=== PATIENT | female | born 1995 | race Caucasian/White ===

== ENCOUNTER 2016-06-22 18:55 | Emergency (ER) | payer OTHER ==
--- NOTE | 2016-06-22 20:26 | XR ---
EXAMINATION TYPE: XR knee complete RT DATE OF EXAM: 06/22/2016 8:17 PM COMPARISON: NONE HISTORY: Knee pain TECHNIQUE: 3 views FINDINGS: I see no fracture nor dislocation. Joint spaces are normal. There is no sign of any joint e ffusion. IMPRESSION: Negative right knee exam.
[2016-06-22] MEDS ORDERED: CYCLOBENZAPRINE 10 MG TAB PO STA (20:33)
[2016-06-22] MEDS ORDERED: ACET/COD 300 MG/30 MG STARTER PACK 6 TAB BTL PO STA (20:33)
--- NOTE | 2016-06-22 20:38 | ED ---
Lower Extremity Injury HPI - General Chief Complaint: Extremity Injury, Lower Stated Complaint: Fell/knee injury Time Seen by Provider: 06/22/16 19:47 Source: patient, RN notes reviewed Mode of arrival: wheelchair Limitations: no limitations - History of Present Illness Initial Comments: Patient is a 20-year-old female presenting to the with chief complaint of right knee pain. Patient reports that she twisted it earlier today. Patient reports that since that she was able to walk on it however she's noticed increased pain in the afternoon. She reports that she feels a grinding sensation in her knee. She denies any previous knee injuries. She does not seem orthopedic physician. She denies any peripheral paresthesias, ankle pain or foot pain. She denies any hip pain as well. Patient denies any recent fever , chills, shortness of breath, chest pain, back pain, abdominal pain, nausea vomiting, numbness or tingling, dysuria or hematuria, constipation or diarrhea, headaches or visual changes, or any other current symptoms - Related Data Previous Rx's Medication Instructions Recorded Cyclobenzaprine [Flexeril] 10 mg PO TID #10 tab 06/22/16 traMADol HCl [Ultram] 50 mg PO Q4H PRN #12 tab 06/22/16 Allergies Allergy/AdvReac Type Severity Reaction Status Date / Time amoxicillin [Amoxicillin] Allergy Unknown Verified 04/16/16 14:05 Review of Systems ROS Statement: Those systems with pertinent positive or pertinent negative responses have been documented in the HPI. ROS Other: All systems not noted in ROS Statement are negative. Past Medical History Additional Past Medical History / Comment(s): ADHD, CEREBRAL PALSY, ARTHRITIS. History of Any Multi-Drug Resistant Organisms: None Reported Past Surgical History: Section Past Psychological History: ADD/ADHD Smoking Status: Current every day smoker Past Alcohol Use History: None Reported Past Drug Use History: None Reported General Exam - General Exam Comments Initial Comments: Luis E is a morbidly obese 20-year-old female. She is on appear to be in any acute distress at this time. Limitations: no limitations General appearance: alert, in no apparent distress Head exam: Present: atraumatic, normocephalic, normal inspection Eye exam: Present: normal appearance, PERRL, EOMI. Absent: scleral icterus, conjunctival injection, periorbital swelling ENT exam: Present: normal exam, mucous membranes moist Neck exam: Present: normal inspection. Absent: tenderness, meningismus, lymphadenopathy Respiratory exam: Present: normal lung sounds bilaterally. Absent: respiratory distress, wheezes, rales, rhonchi, stridor Cardiovascular Exam: Present: regular rate, normal rhythm, normal heart sounds. Absent: systolic murmur, diastolic murmur, rubs, gallop, clicks GI/Abdominal exam: Present: soft, normal bowel sounds. Absent: distended, tenderness, guarding, rebound, rigid Right Upper Leg exam: Present: normal inspection, full ROM Knee exam: Present: normal inspection, full ROM, tenderness (MCL tenderness) Lower Leg exam: Present: normal inspection, full ROM Ankle exam: Present: normal inspection, full ROM Foot/Toe exam: Present: normal inspection, full ROM Neurovascular tendon exam: Present: no vascular compromise Gait: observed and normal Back exam: Present: normal inspection Neurological exam: Present: alert, oriented X3, CN II-XII intact Psychiatric exam: Present: normal affect, normal mood Skin exam: Present: warm, dry, intact, normal color. Absent: rash Course Vital Signs 06/22/16 06/22/16 19:30 20:53 Temperature 99.1 F 98.0 F Pulse Rate 88 76 Respiratory 18 16 Rate Blood Pressure 128/70 128/76 O2 Sat by Pulse 97 100 Oximetry Medical Decision Making - Medical Decision Making Patient is a 20-year-old female presenting to the with chief complaint of right knee pain. Patient reports that she feels a grinding sensation in her knee. She states they'll be symptoms of current per approximately 1 after falling on the ice. He was given a x-ray which is negative for any acute process. Patient will be given a starter pack of Tylenol 3 and Flexeril. Patient will be discharged at this time instructed to follow-up with orthopedic physician. He will she was given an Carlos Alberto wrap and a prescription for crutches. Patient understands treatment plan and will comply. Return parameters were discussed. - Radiology Data Radiology results: report reviewed Right knee x-ray shows negative for any acute process. No evidence of dislocation or fracture. Disposition Clinical Impression: Right knee sprain Disposition: HOME SELF-CARE Condition: Good Instructions: Knee Sprain (ED) Additional Instructions: Patient instructed to follow-up with orthopedic physician. Keep leg and Carlos Alberto wrap. Patient instructed to take medications as prescribed. Return to the [facility] if any alarming signs or symptoms occur. Prescriptions: Cyclobenzaprine [Flexeril] 10 mg PO TID #10 tab traMADol HCl [Ultram] 50 mg PO Q4H PRN #12 tab PRN Reason: Pain Referrals: Gerardo Toledo MD [STAFF PHYSICIAN] - 1-2 days Time of Disposition: 20:35
[2016-06-22 20:54] VITALS: BP 128/76; PULSE 76; RESP 16; TEMP 98
== END 2016-06-22 20:54 | disposition home or self-care (01) ==
LOC: EC 18:55
DX: S83.91XA Sprain of unspecified site of right knee, initial encounter (principal); W00.0XXA Fall on same level due to ice and snow, initial encounter; Z88.0 Allergy status to penicillin; G80.9 Cerebral palsy, unspecified
CPT/HCPCS: 99283

== ENCOUNTER 2016-06-26 10:13 | Emergency (ER) | payer OTHER ==
--- NOTE | 2016-06-26 11:06 | ED ---
Lower Extremity Injury HPI - General Stated Complaint: Leg Pain Time Seen by Provider: 06/26/16 10:44 Source: RN notes reviewed - History of Present Illness Initial Comments: Patient is 20-year-old female presents to the emergency room for evaluation of right knee pain. Patient states today around 9:30 this morning she was doing a dance move caught the " drop" and twisted her right knee. Patient states she was here on Tuesday with right knee injury. Patient states she was advised to follow-up with [facility] and was given pain medications. Patient states after this incident this morning she is having worsening pain on the medial side of her knee. Patient states the pain is worse than it was on Tuesday. Patient states she thinks she injured her knee more. Patient states she is here for another x-ray. Patient denies following up with [facility] yet. Patient denies any numbness or tingling in her toes. Denies any other injuries during incident. - Related Data Previous Rx's Medication Instructions Recorded Cyclobenzaprine [Flexeril] 10 mg PO TID #10 tab 06/22/16 traMADol HCl [Ultram] 50 mg PO Q4H PRN #12 tab 06/22/16 Allergies Allergy/AdvReac Type Severity Reaction Status Date / Time amoxicillin [Amoxicillin] Allergy Unknown Verified 04/16/16 14:05 Review of Systems ROS Statement: Those systems with pertinent positive or pertinent negative responses have been documented in the HPI. ROS Other: All systems not noted in ROS Statement are negative. Past Medical History Additional Past Medical History / Comment(s): ADHD, CEREBRAL PALSY, ARTHRITIS. History of Any Multi-Drug Resistant Organisms: None Reported Past Surgical History: Section Past Psychological History: ADD/ADHD Smoking Status: Current every day smoker Past Alcohol Use History: None Reported Past Drug Use History: None Reported General Exam - General Exam Comments Initial Comments: Laying in exam bed, no acute distress. General appearance: alert, in no apparent distress Head exam: Present: atraumatic, normocephalic, normal inspection Eye exam: Present: normal appearance ENT exam: Present: normal exam Neck exam: Present: normal inspection Respiratory exam: Absent: respiratory distress Right Upper Leg exam: Present: normal inspection, full ROM. Absent: tenderness Knee exam: Present: normal inspection, full ROM, tenderness (medial knee joint) , full knee extension. Absent: swelling, abrasion, ecchymosis, deformity, crepitus, dislocation Lower Leg exam: Present: normal inspection, full ROM. Absent: tenderness Neurovascular tendon exam: Present: no vascular compromise. Absent: pulse deficit (2+ dorsal pedal and posterior tibial pulses), abnormal cap refill ( Capillary refill less than 2 seconds) Back exam: Present: normal inspection Neurological exam: Present: alert, oriented X3, CN II-XII intact, normal gait Psychiatric exam: Present: normal affect, normal mood Skin exam: Present: warm, dry, intact, normal color. Absent: rash Course Vital Signs 06/26/16 11:14 Temperature 97.8 F Pulse Rate 72 Respiratory 20 Rate Blood Pressure 118/57 O2 Sat by Pulse 98 Oximetry Medical Decision Making - Medical Decision Making Patient is a 20-year-old female presents to the emergency room for evaluation of right knee injury. Right knee x-ray shows no acute findings. Advised patient to continue taking at home pain medications as needed. Advised patient to nonweightbear with crutches for the next 1-2 days. Patient states she has an Carlos Alberto wrap at home from previous visit. Advised patient to follow-up with [facility] if symptoms are not improving in 7-10 days. Patient states she understands everything that was discussed with her. Return parameters discussed. Case discussed with Dr. Michael. - Radiology Data Radiology results: report reviewed, image reviewed Disposition Clinical Impression: Fall, Right knee sprain Disposition: HOME SELF-CARE Condition: Good Instructions: Knee Sprain (ED) Additional Instructions: Rest, elevate and ice on and off for 10-15 minutes for the next 24-48 hours. Nonweightbearing for 1-2 days. Take Tylenol or Motrin as needed for pain. Please follow-up with [facility] in 7-10 days if symptoms are not improving. If new symptoms develop or symptoms worsen, please return to the ER. Referrals: None,Stated [Primary Care Provider] - 1-2 days Gerardo Toledo MD [STAFF PHYSICIAN] - 1-2 days Time of Disposition: 11:25
[2016-06-26 11:17] VITALS: BP 118/57; PULSE 72; RESP 20; TEMP 97.8
--- NOTE | 2016-06-26 11:21 | XR ---
EXAMINATION TYPE: XR knee complete RT DATE OF EXAM: 06/26/2016 11:14 AM COMPARISON: NONE HISTORY: Pain, fall TECHNIQUE: 3 views right knee FINDINGS: Joint spaces are preserved. No acute fractures are evident. No joint effusion is evident. S oft tissues are normal. IMPRESSION: 1. Normal three-view right knee. 2. Follow-up exams can be performed 7-10 days from acute trauma for continued pain.
== END 2016-06-26 12:14 | disposition home or self-care (01) ==
LOC: EC 10:13
DX: S83.91XA Sprain of unspecified site of right knee, initial encounter (principal); X50.1XXA Overexertion from prolonged static or awkward postures, initial encounter; Y93.41 Activity, dancing; Z88.0 Allergy status to penicillin; F17.200 Nicotine dependence, unspecified, uncomplicated
CPT/HCPCS: 99284

== ENCOUNTER 2017-09-20 16:15 | Emergency (ER) | payer OTHER ==
[2017-09-20 16:43] VITALS: BP 157/94; PULSE 82; RESP 16; TEMP 98
--- NOTE | 2017-09-20 16:49 | ED ---
General Adult HPI - General Chief complaint: Skin/Abscess/Foreign Body Stated complaint: rash Time Seen by Provider: 09/20/17 16:41 Source: patient, RN notes reviewed Mode of arrival: ambulatory Limitations: no limitations - History of Present Illness Initial comments: 21-year-old female presents to the emergency department for a chief complaint of rash times one week. Patient states the rash has mostly resolved. 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 She states the fiberglass caused the rash. Patient states she also breathes and fiberglass and it is causing her to cough for the past 2 days. Patient denies any difficulty breathing but says it sometimes makes her short of breath. Patient denies any shortness of breath in the ER. Patient states she talked to her primary care doctor, Dr. Hendrickson, and asked him to write her a letter saying that she could not work with fiberglass. She states if he did this she would be able to switch to a different plant. Patient states that he refused to write it and told her to go to the emergency department to get the note. Patient denies any other complaints including chest pain, abdominal pain, nausea or vomiting. Patient denies history of asthma. Patient is a smoker which she says is probably contributing to her cough as well. - Related Data Home Medications Medication Instructions Recorded Confirmed FLUoxetine HCL [PROzac] 20 mg PO DAILY 09/20/17 09/20/17 buPROPion HCL [Wellbutrin XL] 150 mg PO DAILY 09/20/17 09/20/17 traZODone HCL [Desyrel] 100 mg PO HS 09/20/17 09/20/17 Previous Rx's Medication Instructions Recorded methylPREDNISolone Dose Pack 4 mg PO DIRECTED #21 package 09/20/17 [Medrol Dose Pack] Allergies Allergy/AdvReac Type Severity Reaction Status Date / Time amoxicillin [Amoxicillin] Allergy Unknown Verified 09/20/17 16:52 Review of Systems ROS Statement: Those systems with pertinent positive or pertinent negative responses have been documented in the HPI. ROS Other: All systems not noted in ROS Statement are negative. Past Medical History Additional Past Medical History / Comment(s): ADHD, CEREBRAL PALSY, ARTHRITIS. History of Any Multi-Drug Resistant Organisms: None Reported Past Surgical History: Section Past Psychological History: ADD/ADHD Smoking Status: Current every day smoker Past Alcohol Use History: None Reported Past Drug Use History: None Reported General Exam Limitations: no limitations Head exam: Present: atraumatic, normocephalic, normal inspection Eye exam: Present: normal appearance, PERRL, EOMI. Absent: scleral icterus, conjunctival injection, periorbital swelling ENT exam: Present: normal exam, normal oropharynx (no throat swelling noted.), mucous membranes moist, TM's normal bilaterally Neck exam: Present: normal inspection. Absent: tenderness, meningismus, lymphadenopathy Respiratory exam: Present: normal lung sounds bilaterally. Absent: respiratory distress, wheezes, rales, rhonchi, stridor Cardiovascular Exam: Present: regular rate, normal rhythm, normal heart sounds. Absent: systolic murmur, diastolic murmur, rubs, gallop, clicks Skin exam: Present: warm, dry, intact, normal color, rash (Very mild scaling rash on the bilateral volar elbows and wrists. No erythema. Rash looks like it has healed for the most part.). Absent: erythema, urticaria, vesicles, petechiae, pallor Course Vital Signs 09/20/17 16:39 Temperature 98 F Pulse Rate 82 Respiratory 16 Rate Blood Pressure 157/94 O2 Sat by Pulse 99 Oximetry Medical Decision Making - Medical Decision Making 21-year-old female presents to the emergency department for a chief complaint of rash times one week. Patient states the rash has mostly resolved and is on her inner elbows and inner wrists. Patient states she is also coughing for the past 2 days. Patient states she has worked at a factory with fiberglass for 5 days. She states these issues are due to the fiberglass. Patient went to her primary care Dr. West to ask for a ladder to say she cannot work with fiberglass that she can be moved to another plant. He refused to write and told her to go to the emergency department to get the note instead. Physical exam was unremarkable. There is very mild rash to the bilateral inner elbows which appears scaly and healed. There is no rash on the wrists. Patient denies any chance of . Chest x-ray was obtained which showed no acute cardiopulmonary process. Patient likely has contact dermatitis. Patient was also told to stop smoking in order to help the cough. Patient was told I could not write her a prescription for a steroid which would help with inflammation in the skin and lungs. However I am not able to write a note changing her job. She will have to get that through the primary which she is okay with. Patient will return to the emergency Department if she has any worsening symptoms or shortness of breath. Otherwise she will follow-up with Dr. Hendrickson in one to 2 days as discussed. Disposition Clinical Impression: Contact dermatitis Disposition: HOME SELF-CARE Condition: Good Instructions: Dermatitis (ED) Additional Instructions: Please return to the emergency department if symptoms worsen or you develop shortness of breath. Otherwise take Medrol Dosepak. You may take Benadryl at night and claritin when youre working as needed. Please follow-up with your primary care provider in one to 2 days. Prescriptions: methylPREDNISolone Dose Pack [Medrol Dose Pack] 4 mg PO DIRECTED #21 package Is patient prescribed a controlled substance at discharge?: No Referrals: Kaye West MD [Primary Care Provider] - 1-2 days Time of Disposition: 17:39
--- NOTE | 2017-09-20 17:23 | XR ---
EXAMINATION TYPE: XR chest 2V DATE OF EXAM: 09/20/2017 CLINICAL HISTORY: Cough TECHNIQUE: Frontal and lateral views of the chest are obtained. COMPARISON: 02/08/2014 FINDINGS: There is no focal air space opacity, pleural effusion, or pneumothorax seen. The cardiac silhouette size is within normal limits. The osseous structures are intact. IMPRESSION: No acute cardiopulmonary process.
== END 2017-09-20 17:52 | disposition home or self-care (01) ==
LOC: EC 16:15
DX: L25.9 Unspecified contact dermatitis, unspecified cause (principal); R05 Cough; F17.200 Nicotine dependence, unspecified, uncomplicated; Z79.899 Other long term (current) drug therapy; Z88.0 Allergy status to penicillin
CPT/HCPCS: 71046; 99283

== ENCOUNTER 2019-02-23 09:49 | Inpatient (IN) | payer OTHER ==
--- NOTE | 2019-02-23 11:14 | ED ---
General Adult HPI - General Chief complaint: Overdose Stated complaint: Overdose Time Seen by Provider: 02/23/19 09:55 Source: patient, RN notes reviewed Mode of arrival: ambulatory Limitations: no limitations - History of Present Illness Initial comments: This is a 23-year-old female presents emergency Department complaining of being depressed today and so in a moment of severe depression she took about 15 Cogentin that were over a year old. Patient states she has had no symptoms from that but because she is no longer suicidal she does not want to at this moment. Patient states she's had bouts like this before but she got real depressed earlier today. Patient denies any chest pain difficulty breathing shows breath per patient denies any abdominal pain patient denies nausea vomiting diarrhea. Patient denies any headache patient denies any numbness weakness per patient denies any lightheadedness. - Related Data Home Medications Medication Instructions Recorded Confirmed No Known Home Medications 02/23/19 02/23/19 Allergies Allergy/AdvReac Type Severity Reaction Status Date / Time amoxicillin [Amoxicillin] Allergy Unknown Verified 02/23/19 10:06 Review of Systems ROS Statement: Those systems with pertinent positive or pertinent negative responses have been documented in the HPI. ROS Other: All systems not noted in ROS Statement are negative. Past Medical History Additional Past Medical History / Comment(s): ADHD, CEREBRAL PALSY, ARTHRITIS. History of Any Multi-Drug Resistant Organisms: None Reported Past Surgical History: Section Past Psychological History: ADD/ADHD Smoking Status: Current every day smoker Past Alcohol Use History: None Reported Past Drug Use History: None Reported General Exam - General Exam Comments Initial Comments: GENERAL: Patient is well-developed and well-nourished. Patient is nontoxic and well- hydrated and is in mild distress. ENT: Neck is soft and supple. No significant lymphadenopathy is noted. Oropharynx is clear. Moist mucous membranes. Neck has full range of motion without eliciting any pain. EYES: The sclera were anicteric and conjunctiva were pink and moist. Extraocular movements were intact and pupils were equal round and reactive to light. Eyelids were unremarkable. PULMONARY: Unlabored respirations. Good breath sounds bilaterally. No audible rales r honchi or wheezing was noted. CARDIOVASCULAR: There is a regular rate and rhythm without any murmurs gallops or rubs. ABDOMEN: Soft and nontender with normal bowel sounds. SKIN: Skin is clear with no lesions or rashes and otherwise unremarkable. NEUROLOGIC: Patient is alert and oriented x3. Cranial nerves II through XII are grossly intact. Motor and sensory are also intact. Normal speech, volume and content. Symmetrical smile. MUSCULOSKELETAL: Normal extremities with adequate strength and full range of motion. LYMPHATICS: No significant lymphadenopathy is noted PSYCHIATRIC: Patient states she's been very depressed lately and she was suicidal earlier and is why she took the pills but she claims currently she is not suicidal Limitations: no limitations Course Vital Signs 02/23/19 02/23/19 02/23/19 09:54 10:11 11:00 Temperature 98.8 F Pulse Rate 80 77 80 Respiratory 18 18 18 Rate Blood Pressure 112/80 134/89 O2 Sat by Pulse 96 95 96 Oximetry 02/23/19 02/23/19 02/23/19 12:00 13:00 14:00 Temperature Pulse Rate 86 84 82 Respiratory 18 18 16 Rate Blood Pressure O2 Sat by Pulse 96 96 96 Oximetry 02/23/19 15:00 Temperature Pulse Rate 90 Respiratory 18 Rate Blood Pressure 139/80 O2 Sat by Pulse 96 Oximetry Medical Decision Making - Medical Decision Making EKG shows normal sinus rhythm at 81 bpm HI interval 116 QRS is 92 QT interval 36 QTC is 448. [facility] came to evaluate the patient but at this time she was slightly altered compared to earlier and was getting confused. I believe this was a side effect of the Cogentin and since they could not evaluate her fully because he did not think she was completely sober at this time I admitted the patient I spoke with Dr. Her he agreed to admit the patient I put her on suicide per cautions I consulted psych. - Lab Data Result diagrams: 02/23/19 11:18 02/23/19 11:18 Lab Results 02/23/19 02/23/19 02/23/19 Range/Units 11:18 11:18 11:18 WBC 8.5 (3.8-10.6) k/uL RBC 4.49 (3.80-5.40) m/uL Hgb 13.2 (11.4-16.0) gm/dL Hct 39.6 (34.0-46.0) % MCV 88.2 (80.0-100.0) fL MCH 29.3 (25.0-35.0) pg MCHC 33.3 (31.0-37.0) g/dL RDW 14.9 (11.5-15.5) % Plt Count 313 (150-450) k/uL Neutrophils % 62 % Lymphocytes % 28 % Monocytes % 4 % Eosinophils % 5 % Basophils % 1 % Neutrophils # 5.2 (1.3-7.7) k/uL Lymphocytes # 2.4 (1.0-4.8) k/uL Monocytes # 0.4 (0-1.0) k/uL Eosinophils # 0.4 (0-0.7) k/uL Basophils # 0.0 (0-0.2) k/uL Sodium 142 (137-145) mmol/L Potassium 4.8 (3.5-5.1) mmol/L Chloride 106 (98-107) mmol/L Carbon Dioxide 26 (22-30) mmol/L Anion Gap 10 mmol/L BUN 13 (7-17) mg/dL Creatinine 0.62 (0.52-1.04) mg/dL Est GFR (CKD-EPI)AfAm >90 (>60 ml/min/1.73 sqM) Est GFR (CKD-EPI)NonAf >90 (>60 ml/min/1.73 sqM) Glucose 90 (74-99) mg/dL Calcium 9.4 (8.4-10.2) mg/dL Total Bilirubin 0.4 (0.2-1.3) mg/dL AST 30 (14-36) U/L ALT 25 (9-52) U/L Alkaline Phosphatase 69 (38-126) U/L Total Protein 7.9 (6.3-8.2) g/dL Albumin 4.5 (3.5-5.0) g/dL Salicylates <1.0 mg/dL Urine Opiates Screen Not Detected (NotDetected) Ur Oxycodone Screen Not Detected (NotDetected) Urine Methadone Screen Not Detected (NotDetected) Ur Propoxyphene Screen Not Detected (NotDetected) Acetaminophen <10.0 ug/mL Ur Barbiturates Screen Not Detected (NotDetected) U Tricyclic Antidepress Not Detected (NotDetected) Ur Phencyclidine Scrn Not Detected (NotDetected) Ur Amphetamines Screen Not Detected (NotDetected) U Methamphetamines Scrn Not Detected (NotDetected) U Benzodiazepines Scrn Not Detected (NotDetected) Urine Cocaine Screen Not Detected (NotDetected) U Marijuana (THC) Screen Detected H (NotDetected) Disposition Clinical Impression: Suicide attempt, Overdose, drug Disposition: ADMITTED IP TO THIS HOSP Referrals: Kaye West MD [Primary Care Provider] - 1-2 days Time of Disposition: 15:39
[2019-02-23] MEDS ORDERED: ONDANSETRON 4 MG/2 ML VIAL IVP STA (11:20)
[2019-02-23] MEDS ORDERED: SODIUM CHLORIDE 0.9% 1,000 ML IV ONE ×2 (11:21→15:43)
[2019-02-23 11:58] LABS: Basophils % (A) 1 %; Eosinophils # (A) 0.4 k/uL (0-0.7); Eosinophils % (A) 5 %; HCT 39.6 % (34.0-46.0); HGB 13.2 gm/dL (11.4-16.0); Lymphocytes # (A) 2.4 k/uL (1.0-4.8); Lymphocytes % (A) 28 %; MCH 29.3 pg (25.0-35.0); MCHC 33.3 g/dL (31.0-37.0); MCV 88.2 fL (80.0-100.0); Mean Platelet Volume 6.5; Monocytes # (A) 0.4 k/uL (0-1.0); Monocytes % (A) 4 %; Neutrophils # (A) 5.2 k/uL (1.3-7.7); Neutrophils % (A) 62 %; Platelet Count 313 k/uL (150-450); RBC 4.49 m/uL (3.80-5.40); RDW 14.9 % (11.5-15.5); WBC 8.5 k/uL (3.8-10.6)
[2019-02-23 12:02] LABS: ALT 25 U/L (9-52); AST 30 U/L (14-36); Acetaminophen <10.0 ug/mL; African American GFR (CKD) >90 (>60 ml/min/1.73 sqM); Albumin 4.5 g/dL (3.5-5.0); Alkaline Phosphatase 69 U/L (38-126); Anion Gap 10 mmol/L; Blood Urea Nitrogen 13 mg/dL (7-17); Calcium 9.4 mg/dL (8.4-10.2); Carbon Dioxide 26 mmol/L (22-30); Chloride 106 mmol/L (98-107); Glucose 90 mg/dL (74-99); Potassium 4.8 mmol/L (3.5-5.1); Salicylate <1.0 mg/dL; Sodium 142 mmol/L (137-145); Total Bilirubin 0.4 mg/dL (0.2-1.3); Total Protein 7.9 g/dL (6.3-8.2)
[2019-02-23 12:16] LABS: Amphetamine Screen,Urine Not Detected (NotDetected); Barbiturate Screen,Urine Not Detected (NotDetected); Benzodiazepines Screen,Urine Not Detected (NotDetected); Cocaine Screen,Urine Not Detected (NotDetected); Methadone Screen, Urine Not Detected (NotDetected); Opiate Screen,Urine Not Detected (NotDetected); Oxycodone Screen, Urine Not Detected (NotDetected); Phencyclidine Screen,Urine Not Detected (NotDetected); Tricyclic Antidepressant,Urine Not Detected (NotDetected); Urn Cannabinoid Scrn Detected (NotDetected)
[2019-02-23] MEDS ORDERED: HALOPERIDOL LACTATE 5 MG/ML 1 ML VIAL IVP PRN (23:54)
[2019-02-24] MEDS ORDERED: HALOPERIDOL LACTATE 5 MG/ML 1 ML VIAL IM PRN ×2 (00:04→01:13)
[2019-02-24] MEDS ORDERED: HALOPERIDOL LACTATE 5 MG/ML 1 ML VIAL IVP PRN (01:13)
--- NOTE | 2019-02-24 02:24 | P.HPIM ---
History of Present Illness H&P Date: 02/23/19 Chief Complaint: Drug overdose Patient is a 23-year-old female with known history of ADD/ADHD, cerebral palsy, nicotine addiction and osteoarthritis was brought to the hospital due to drug overdose with 15 tablets of Cogentin. Patient says that he was very depressive today and suddenly took his old bottle of pills. Patient says that she was emotionally very upset and took medications impulsively. Denied any suicidal ideation currently. Patient otherwise was to be discharged home. No complaints of chest pain or abdominal pain. No shortness of breath. No nausea vomiting or diarrhea. No dysuria or hematuria. Denied any recent illnesses. No headache or dizziness or lightheadedness. Review of Systems Constitutional: Patient denies any fever or chills . No generalized weakness or weight loss. Abdomen: Patient denied nausea vomiting and diarrhea and abdominal pain. Cardiovascular: Patient denies any chest pain or short of breath no palpitations. Respiratory: patient denied any cough is from production. No shortness of breath Neurologic: Patient denied any numbness or tingling headache. Musculoskeletal: Patient denies any complaints of joint swelling or deformity. Skin: Negative Psychiatric: Negative Endocrine: No heat or cold intolerance. No recent weight gain. Genitourinary: No dysuria or hematuria. All other 14 point ROS negative except the above Past Medical History Additional Past Medical History / Comment(s): ADHD, CEREBRAL PALSY, ARTHRITIS. History of Any Multi-Drug Resistant Organisms: None Reported Past Surgical History: Section Past Psychological History: ADD/ADHD Smoking Status: Current every day smoker Past Alcohol Use History: None Reported Past Drug Use History: None Reported - Past Family History Mother Family Medical History: Hypertension Medications and Allergies Home Medications Medication Instructions Recorded Confirmed Type No Known Home Medications 02/23/19 02/23/19 History Allergies Allergy/AdvReac Type Severity Reaction Status Date / Time amoxicillin [Amoxicillin] Allergy Unknown Verified 02/23/19 10:06 Physical Exam Vitals: Vital Signs Temp Pulse Resp BP Pulse Ox 02/23/19 15:00 90 18 139/80 96 02/23/19 14:00 82 16 96 02/23/19 13:00 84 18 96 02/23/19 12:00 86 18 96 02/23/19 11:00 80 18 134/89 96 02/23/19 10:11 77 18 95 02/23/19 09:54 98.8 F 80 18 112/80 96 Intake and Output 02/23/19 02/23/19 02/23/19 06:59 14:59 22:59 Other: Weight 122.47 kg PHYSICAL EXAMINATION: Patient is lying in the bed comfortably, no acute distress, awake alert and oriented.. HEENT: Normocephalic. Neck is supple. Pupils reactive. Nostrils clear. Oral cavity is moist. Ears reveal no drainage. Neck reveals no JVD, carotid bruits, or thyromegaly. CHEST EXAMINATION: Trachea is central. Symmetrical expansion. Lung webster clear to auscultation and percussion. CARDIAC: Normal S1, S2 with no gallops. No murmurs ABDOMEN: Soft. Bowel sounds normal. No organomegaly. No abdominal bruits. Extremities: reveal no edema. No clubbing or cyanosis Neurologically awake, alert, oriented x3 with well-coordinated movements. No focal deficits noted Skin: No rash or skin lesions. Psychiatric: Coperative. Nonsuicidal rattly. Anxious and agitated Musculoskeletal: No joint swelling or deformity. Normal range of motion. Results CBC & Chem 7: 02/23/19 11:18 02/23/19 11:18 Labs: Abnormal Lab Results - Last 24 Hours (Table) 02/23/19 Range/Units 11:18 U Marijuana (THC) Screen Detected H (NotDetected) Thrombosis Risk Factor Assmnt - DVT/VTE Prophylaxis DVT/VTE Prophylaxis: Pharmacologic Prophylaxis ordered Assessment and Plan Assessment: Acute drug overdose with bosentan 15 tablets. Acute suicide attempt. Marijuana use ADD/ADHD Nicotine addiction Osteoarthritis Morbid obesity with BMI 44.9 DVT prophylaxis with early elevation Plan: Patient be continued on IV hydration. Monitor closely and symptomatic management. Psychiatry services be consulted for evaluation. Marijuana use has been counseled. Further recommendations based on the clinical course. Time with Patient: Greater than 30
[2019-02-24] MEDS: risperiDONE 0.5 MG TAB PO SCH ×2 (14:51→20:48)
[2019-02-24] MEDS: NICOTINE 21MG/24HR PATCH TRANSDERM SCH (16:03)
--- NOTE | 2019-02-25 02:55 | P.PN ---
Subjective Progress Note Date: 02/24/19 Principal diagnosis: Acute drug overdose Patient is a 23-year-old female with known history of ADD/ADHD, cerebral palsy, nicotine addiction and osteoarthritis was brought to the hospital due to drug overdose with 15 tablets of Cogentin. Patient says that he was very depressive today and suddenly took his old bottle of pills. Patient says that she was emotionally very upset and took medications impulsively. Denied any suicidal ideation currently. Patient otherwise was to be discharged home. No complaints of chest pain or abdominal pain. No shortness of breath. No adore sea vomiting or diarrhea. No dysuria or hematuria. Denied any recent illnesses. No headache or dizziness or lightheadedness. 02/24/2090 Patient says that she feels better today. No complaints of chest pain or shortness of breath. No headache or dizziness or lightheadedness. Patient was seen by psychiatry and recommends Haldol when necessary and started on risperidone. No nausea vomiting or abdominal pain. No diarrhea or dysuria. No headache or dizziness. Current medications reviewed. Objective - Vital Signs Vital signs: Vital Signs Temp 98.4 F 02/24/19 15:00 Pulse 102 H 02/24/19 15:00 Resp 16 02/24/19 15:00 BP 104/69 02/24/19 15:00 Pulse Ox 95 02/24/19 15:00 Intake & Output 02/23/19 02/24/19 02/24/19 18:59 06:59 18:59 Intake Total 620 532 Balance 620 532 Weight 122.47 kg Intake: Oral 620 532 Other: Voiding Method Toilet Toilet # Voids 1 3 - Exam PHYSICAL EXAMINATION: Patient is lying in the bed comfortably, no acute distress, awake alert and oriented.. HEENT: Normocephalic. Neck is supple. Pupils reactive. Nostrils clear. Oral cavity is moist. Ears reveal no drainage. Neck reveals no JVD, carotid bruits, or thyromegaly. CHEST EXAMINATION: Trachea is central. Symmetrical expansion. Lung webster clear to auscultation and percussion. CARDIAC: Normal S1, S2 with no gallops. No murmurs ABDOMEN: Soft. Bowel sounds normal. No organomegaly. No abdominal bruits. Extremities: reveal no edema. No clubbing or cyanosis Neurologically awake, alert, oriented x3 with well-coordinated movements. No focal deficits noted Skin: No rash or skin lesions. Psychiatric: Coperative. Nonsuicidal Musculoskeletal: No joint swelling or deformity. Normal range of motion. - Labs CBC & Chem 7: 02/23/19 11:18 02/23/19 11:18 Assessment and Plan Assessment: Acute drug overdose with bosentan 15 tablets. Acute suicide attempt. Marijuana use ADD/ADHD Nicotine addiction Osteoarthritis Morbid obesity with BMI 44.9 DVT prophylaxis with early elevation Plan: Patient be continued on IV hydration. Monitor closely and symptomatic haily fan. Psychiatry services seen the patient. Haldol when necessary for agitation and risperidone was ordered.. Marijuana use has been counseled. Further recommendations based on the clinical course. Time with Patient: Greater than 30
[2019-02-25] MEDS: risperiDONE 0.5 MG TAB PO SCH ×2 (07:36→22:00)
[2019-02-25] MEDS: NICOTINE 21MG/24HR PATCH TRANSDERM SCH (07:38)
--- NOTE | 2019-02-25 14:07 | P.PN ---
Progress Note - Text Progress Note Date: 02/25/19 Psychiatric progress note: Psychiatry was consulted for suicidal ideations and there was concern for altered mental status and possible hallucinations patient's behavior. Patient presented to the hospital after an overdose on her Cogentin taking 15 tablets in a suicide attempt. He was noted as per EMR the patient was depressed and took the medications impulsively. Manager Field Service spoke with nurse at the bedside who states that patient continues to be "bizarre" and reports that she is hallucinating however patient is taking her medications which included Risperdal 0.5 mg twice a day and has not required Haldol when necessary last 24 hourr For agitation. Manager Field Service attempted to see patient at the bedside however patient was somnolent and would not awake on command. Will continue to follow along and will attempt to evaluate patient tomorrow.
--- NOTE | 2019-02-26 02:25 | P.PN ---
Subjective Progress Note Date: 02/25/19 Principal diagnosis: Acute drug overdose Patient is a 23-year-old female with known history of ADD/ADHD, cerebral palsy, nicotine addiction and osteoarthritis was brought to the hospital due to drug overdose with 15 tablets of Cogentin. Patient says that he was very depressive today and suddenly took his old bottle of pills. Patient says that she was emotionally very upset and took medications impulsively. Denied any suicidal ideation currently. Patient otherwise was to be discharged home. No complaints of chest pain or abdominal pain. No shortness of breath. No adore sea vomiting or diarrhea. No dysuria or hematuria. Denied any recent illnesses. No headache or dizziness or lightheadedness. 02/24/2019 Patient says that she feels better today. No complaints of chest pain or shortness of breath. No headache or dizziness or lightheadedness. Patient was seen by psychiatry and recommends Haldol when necessary and started on risperidone. No nausea vomiting or abdominal pain. No diarrhea or dysuria. No headache or dizziness. 02/25/2019 Patient continues to be bizarre and was started on risperidone. Patient has been sleeping most of the time. Denied any complaints otherwise. Psychiatry is unrevealing the patient tomorrow. Patient is being continued on bedside sitter Current medications reviewed. Objective - Vital Signs Vital signs: Vital Signs Temp 98.4 F 02/25/19 01:21 Pulse 91 02/25/19 01:21 Resp 18 02/25/19 01:21 BP 119/86 02/25/19 01:21 Pulse Ox 96 02/25/19 01:21 Intake & Output 02/24/19 02/25/19 02/25/19 18:59 06:59 18:59 Intake Total 532 896 296 Balance 532 896 296 Intake: Intake, IV Titration 0 Amount Sodium Chloride 0.9% 1, 0 000 ml @ 100 mls/hr IV . Q10H ONE Rx#:[id number] Oral 532 896 296 Other: Voiding Method Toilet Toilet Toilet # Voids 3 3 3 - Exam PHYSICAL EXAMINATION: Patient is lying in the bed comfortably, no acute distress, awake alert and oriented.. HEENT: Normocephalic. Neck is supple. Pupils reactive. Nostrils clear. Oral cavity is moist. Ears reveal no drainage. Neck reveals no JVD, carotid bruits, or thyromegaly. CHEST EXAMINATION: Trachea is central. Symmetrical expansion. Lung webster clear to auscultation and percussion. CARDIAC: Normal S1, S2 with no gallops. No murmurs ABDOMEN: Soft. Bowel sounds normal. No organomegaly. No abdominal bruits. Extremities: reveal no edema. No clubbing or cyanosis Neurologically awake, alert, oriented x3 with well-coordinated movements. No focal deficits noted Skin: No rash or skin lesions. Psychiatric: Coperative. Nonsuicidal. Hallucinations and bizarre behavior Musculoskeletal: No joint swelling or deformity. Normal range of motion. - Labs CBC & Chem 7: 02/23/19 11:18 02/23/19 11:18 Assessment and Plan Assessment: Acute drug overdose with bosentan 15 tablets. Acute suicide attempt. Marijuana use ADD/ADHD Nicotine addiction Osteoarthritis Morbid obesity with BMI 44.9 DVT prophylaxis with early elevation Plan: Patient be continued on IV hydration. Monitor closely and symptomatic management. Psychiatry services seen the patient. Haldol when necessary for agitation and risperidone was ordered.. Marijuana use has been counseled. Further recommendations based on the clinical course. Time with Patient: Greater than 30
[2019-02-26] MEDS: NICOTINE 21MG/24HR PATCH TRANSDERM SCH (08:40)
[2019-02-26] MEDS: risperiDONE 0.5 MG TAB PO SCH (08:41)
[2019-02-26] MEDS ORDERED: LORazepam 2 MG/ML INJ IM PRN (13:39)
--- NOTE | 2019-02-26 14:38 | P.CN ---
Psychiatric Consult - . Consult date: 02/26/19 Consult:: 02/26/19 14:26 IDENTIFYING DATA: This patient is a 23-year-old female who currently lives with her cousin in apartment and is supported by her mother and sister financially. HISTORY OF PRESENT ILLNESS: The patient has a history of cerebral palsy, depression and ADHD by history who presented to the hospital after an overdose of taking 15 of her Cogentin tablets. At that time in the ER patient did admit to depression and taking her medications impulsively. Psychiatry was consulted for depression and suicide attempt. Patient's nurse stated that patient has been sleeping on and off and has acted bizarre however is more appropriate today and take her medications. Wallboard Worker spoke with patient today at the bedside as patient was waking up from a nap. Patient was noticed to be mumbling at times and was tangential, illogical and inappropriate with some of her answers. Patient appeared to have poor insight and judgment along with poor impulse control and reality testing. Patient spoke about having intent to harm herself when she did overdose however was inappropriate in most of her answers and not directable. She spoke about a stressor of people disrespecting her which was making her angry at home. Patient was not able to give many details about the event that occurred in her state of mind at that time. She admits to ongoing depression which has been increasing in severity and admitted to anxiety as well. She states that she was hearing voices and having some visual hallucinations however they have dissipated at this time. At this time patient denies any suicidal or homical ideations, intent or plan. Patient admits to smoking marijuana approximately 1.5 g every other day and claims that she quit using methamphetamines about a month ago. She admitted to smoking cigarettes approximately one pack per day. She denies any alcohol use or any other illicit drugs. PAST PSYCHIATRIC HISTORY: Patient claims that she had one previous admission at [facility] many years ago and has had 2 suicide attempts in the past which she does not give the details 2. She admits to be diagnosed with depression and ADHD. She denies any outpatient follow-up. PAST MEDICAL HISTORY: Cerebral palsy, ADHD, osteoarthritis. ALLERGIES: Amoxicillin. CHEMICAL DEPENDENCY HISTORY: As per HPI. FAMILY PSYCHIATRIC/SUBSTANCE USE HISTORY: Claims her mother has mental illness SOCIAL HISTORY: Patient claims that she was born and raised in [facility]. 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 Patient states that she is currently unemployed and supported by her mother and her sister and lives in an apartment with her cousin. MENTAL STATUS EXAM: General Appearance: [Patient appears to be older than stated age is alert, somewhat directable however is bizarre at times and inappropriate. Patient has poor hygiene and poor grooming. Behavior: Patient is calmly sitting at the side bed without any agitated behavior. Speech: Patient's speech is nonpressured and illogical/inappropriate Mood/Affect: Patient reports their mood is "fine", affect is incongruent Suicidality/Homicidality: Patient denies having any suicidal or homicidal ideation intent or plan. Perceptions: Patient denies any auditory or visual hallucinations. Though content/process: There is no evidence of any delusional thought content and thought process is tangential/circumstantial and loose. Memory and concentration: AOX3, grossly intact for the purposes of this session. Cannot spell "WORLD" backwards. Patient knew the past 3 presidents. Patient could identify 3 objects and had 3 of 3 memory recall. Judgment and insight: Poor IMPRESSIONS: Psychosis unspecified Depressive disorder unspecified Cannabis use disorder PLAN: -At this time patient does meet criteria for inpatient psychiatric admission. -Patient DOES NOT have decision making capacity at this time and is unable to reason through and communicate/appreciate the risks, benefits and alternatives to treatment. -Would recommend the following medication changes/additions: Increased Risperdal to 1 mg twice a day for psychosis. Patient to continue on Haldol and Ativan when necessary every 8 hours for severe agitation. -Continue 1:1 sitter for safety -Cannot leave AMA at this time. Patient will need a petition and certification if attempting to leave AMA. -When medically stable, patient is eligible for transfer to a psych bed when available. -Psychiatry will sign off at this point
--- NOTE | 2019-02-26 15:41 | P.DS ---
Providers Date of admission: 02/25/19 15:25 Expected date of discharge: 02/26/19 Attending physician: Sugar Her Consults: 02/23/19 15:43 Consult Physician Urgent Consulting Provider: Sg Gonzalez Consult Reason/Comments: Suicidal ideations Do you want consulting provider notified?: Yes Primary care physician: Brett Restrepo Hospital Course: Discharge diagnosis. Acute drug overdose with Cogentin 15 tablets. Acute suicide attempt. Marijuana use ADD/ADHD Nicotine addiction Osteoarthritis Morbid obesity with BMI 44.9 DVT prophylaxis with early elevation Hospital course Patient is a 23-year-old female with known history of ADD/ADHD, cerebral palsy, nicotine addiction and osteoarthritis was brought to the hospital due to drug overdose with 15 tablets of Cogentin. Patient says that he was very depressive today and suddenly took his old bottle of pills. Patient says that she was emotionally very upset and took medications impulsively. Denied any suicidal ideation currently. Patient otherwise was to be discharged home. No complaints of chest pain or abdominal pain. No shortness of breath. No nausea vomiting or diarrhea. No dysuria or hematuria. Denied any recent illnesses. No headache or dizziness or lightheadedness. 02/24/2019 Patient says that she feels better today. No complaints of chest pain or shortness of breath. No headache or dizziness or lightheadedness. Patient was seen by psychiatry and recommends Haldol when necessary and started on risperidone. No nausea vomiting or abdominal pain. No diarrhea or dysuria. No headache or dizziness. 02/25/2019 Patient continues to be bizarre and was started on risperidone. Patient has been sleeping most of the time. Denied any complaints otherwise. Psychiatry is unrevealing the patient tomorrow. Patient is being continued on bedside sitter 02/26/2019 Patient is currently sleeping but when she wakes up she still having dizziness and hallucinations. Continue with when necessary Haldol and Risperdal twice daily. Psychiatric recommends inpatient psychiatric transfer. Otherwise patient is medically stable to be discharged. PHYSICAL EXAMINATION: Patient is lying in the bed comfortably, no acute distress, awake alert and oriented.. HEENT: Normocephalic. Neck is supple. Pupils reactive. Nostrils clear. Oral cavity is moist. Ears reveal no drainage. Neck reveals no JVD, carotid bruits, or thyromegaly. CHEST EXAMINATION: Trachea is central. Symmetrical expansion. Lung webster clear to auscultation and percussion. CARDIAC: Normal S1, S2 with no gallops. No murmurs ABDOMEN: Soft. Bowel sounds normal. No organomegaly. No abdominal bruits. Extremities: reveal no edema. No clubbing or cyanosis Neurologically awake, alert, oriented x3 with well-coordinated movements. No focal deficits noted Skin: No rash or skin lesions. Psychiatric: Coperative. Hallucinations. Musculoskeletal: No joint swelling or deformity. Normal range of motion. Vital Signs 02/26/19 02/26/19 08:02 15:00 Temperature 97.9 F 98.4 F Pulse Rate [ 92 94 Pulse Oximetery ] Respiratory 18 16 Rate Blood Pressure 116/78 114/77 [Right Arm] O2 Sat by Pulse 93 L 92 L Oximetry Patient Condition at Discharge: Undetermined Plan - Discharge Summary New Discharge Prescriptions: New risperiDONE [RisperDAL] 1 mg PO BID tab Discharge Medication List risperiDONE [RisperDAL] 1 mg PO BID tab 02/26/19 [Rx] Follow up Appointment(s)/Referral(s): Kaye West MD [Primary Care Provider] - 1-2 days Discharge Disposition: TRANSFER TO PSYCH HOSP/UNIT
[2019-02-26] MEDS: HALOPERIDOL LACTATE 5 MG/ML 1 ML VIAL IM PRN (18:18)
[2019-02-26 19:51] VITALS: BP 128/87; PULSE 108; RESP 18; TEMP 98.5
[2019-02-27] MEDS: risperiDONE 1 MG TAB PO SCH ×2 (00:21→11:12)
[2019-02-27] MEDS: NICOTINE 21MG/24HR PATCH TRANSDERM SCH (09:56)
[2019-02-27] MEDS: HALOPERIDOL LACTATE 5 MG/ML 1 ML VIAL IM PRN (17:07)
== END 2019-02-27 17:18 | DRG 918 ==
LOC: EC 09:49 → 4SSUR 16:12 → OBSVTOIN 02-25 15:25
PROVIDERS: ADMIT Internal Medicine; ATTEND Internal Medicine
DX: T44.3X2A Poisoning by other parasympatholytics [anticholinergics and antimuscarinics] and spasmolytics, intentional self-harm, initial encounter (principal); Z68.41 Body mass index [BMI] 40.0-44.9, adult; F29 Unspecified psychosis not due to a substance or known physiological condition; E66.01 Morbid (severe) obesity due to excess calories; F12.90 Cannabis use, unspecified, uncomplicated; R42 Dizziness and giddiness; F17.200 Nicotine dependence, unspecified, uncomplicated; F90.9 Attention-deficit hyperactivity disorder, unspecified type; G80.9 Cerebral palsy, unspecified; F32.9 Major depressive disorder, single episode, unspecified; M19.90 Unspecified osteoarthritis, unspecified site; Z82.49 Family history of ischemic heart disease and other diseases of the circulatory system; Z88.0 Allergy status to penicillin; Z98.891 History of uterine scar from previous surgery
CPT/HCPCS: 36415; 80053; 80306; 80329; 82075; 83520; 85025; 93005; 96361; 96374; 99285

== ENCOUNTER 2019-02-27 17:31 | Inpatient (IN) | payer MEDICAID, OTHER ==
[2019-02-27 18:20] VITALS: RESP 18; BMI 44.3
[2019-02-27] MEDS ORDERED: MAGNESIUM HYDROXIDE 2,400 MG/10 ML CUP PO PRN (18:39)
[2019-02-27] MEDS ORDERED: MAG HYDROX/AL HYDROX/SIMETH 30 ML CUP PO PRN (18:39)
[2019-02-27] MEDS ORDERED: LORazepam 1 MG TAB PO PRN (18:46)
[2019-02-27] MEDS ORDERED: LORazepam 2 MG/ML INJ IM PRN (18:46)
[2019-02-27] MEDS ORDERED: HALOPERIDOL LACTATE 5 MG/ML 1 ML VIAL IM PRN (18:47)
[2019-02-27] MEDS: risperiDONE 1 MG TAB PO SCH (21:31)
[2019-02-27] MEDS: NICOTINE 14MG/24HR PATCH TRANSDERM SCH (21:31)
[2019-02-28] MEDS: risperiDONE 1 MG TAB PO SCH ×2 (08:34→20:53)
[2019-02-28] MEDS: NICOTINE 14MG/24HR PATCH TRANSDERM SCH (08:34)
[2019-02-28] MEDS: ACETAMINOPHEN TAB 325 MG TAB PO PRN (11:25)
--- NOTE | 2019-02-28 12:06 | P.HP ---
Psychiatric H&P - . H&P Date: 02/28/19 History & Physical: Allergies Allergy/AdvReac Type Severity Reaction Status Date / Time amoxicillin Amoxicillin Allergy Unknown Verified 02/27/19 18:21 Vital Signs Temp 99.3 F 02/27/19 18:09 Pulse 123 H 02/27/19 18:09 Resp 18 02/27/19 18:09 BP 132/58 02/27/19 18:09 Pulse Ox Intake & Output 02/27/19 02/28/19 02/28/19 18:59 06:59 18:59 Weight 120.8 kg Laboratory Last Values Triglycerides 154 mg/dL (<150) H 02/28/19 09:04 Cholesterol 156 mg/dL (<200) 02/28/19 09:04 LDL Cholesterol, Calc 100 mg/dL (0-99) H 02/28/19 09:04 HDL Cholesterol 25 mg/dL (40-60) L 02/28/19 09:04 TSH 2.830 mIU/L (0.465-4.680) 02/28/19 09:04 02/28/19 11:54 IDENTIFYING DATA: Patient is a 23-year-old female who currently lives with her cousin in an apartment and is supported by her mother and sister financially. HPI: Ms. Merlos has a history of cerebral palsy, depression and ADHD by history who initially presented to the hospital after an overdose of taking 15 of her Cogentin tablets. At that time in the ER patient did admit to depression and taking her medications impulsively. Psychiatry was consulted at that time for depression and suicide attempt. After the psychiatry consultation patient was titrated up to Risperdal 1 mg twice a day for mood stabilization/psychosis and was recommended to be transferred to the mental health unit. Patient was agreeable to be seen today for admission evaluation and patient was more directable and cooperative. Patient had improved insight and states that her trigger was her mother yelling at her over the phone however patient states that it was because she had lost her kids. She claims that her mother has been a chronic trigger for her and leads her to do impulsive things. She states that after she overdosed she realized that she needed to stay alive for her kids and regretted it. She did describe feeling depressed and feeling irritable with mood swings. She spoke about a stressor of people disrespecting her which was making her angry at home. Patient also spoke about disrespect on the medical floors and overuse of power however feels a lot safer now she is on the mental health unit and can walk around and doesn't have to stare at "the 4 lambert". Patient admits to ongoing anxiety as well. She states that she was hearing voices and having some visual hallucinations however they have dissipated at this time. At this time patient denies any suicidal or homical ideations, intent or plan. Patient admits to smoking marijuana approximately 1.5 g every other day and claims that she quit using methamphetamines about a month ago. She admitted to smoking cigarettes approximately one pack per day. She denies any alcohol use or any other illicit drugs. Patient denies any flight of ideas racing thoughts and increased in goal directed behavior. PAST PSYCHIATRIC HISTORY: Patient claims that she had one previous admission at [facility] many years ago and has had 2 suicide attempts in the past which she does not give the details 2. She admits to be diagnosed with depression and ADHD. She denies any outpatient follow-up. PAST MEDICAL HISTORY: Cerebral palsy, ADHD, osteoarthritis. ALLERGIES: Amoxicillin. CHEMICAL DEPENDENCY HISTORY: As per HPI. FAMILY PSYCHIATRIC/SUBSTANCE USE HISTORY: Claims her mother has mental illness SOCIAL HISTORY: Patient claims that she was born and raised in [facility]. 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 Patient states that she is currently unemployed and supported by her mother and her sister and lives in an apartment with her cousin. MENTAL STATUS EXAM: General Appearance: Patient appears to be older than stated age is alert, dir ectable and cooperative. Patient has fair hygiene and fair grooming. Patient appears to be overweight. Behavior: Patient is calmly seated without any agitated behavior. Speech: Patient's speech is fluent and nonpressured. Mood/Affect: Patient reports their mood is fine, affect is congruent and constricted. Suicidality/Homicidality: Patient denies having any suicidal or homicidal ideation intent or plan. Perceptions: Patient denies any auditory or visual hallucinations. Though content/process: There is no evidence of any delusional thought content and thought process is linear and goal-directed. Memory and concentration: AOX3, grossly intact for the purposes of this session. Can spell "WORLD" backwards Judgment and insight: Poor, improving STRENGTHS/WEAKNESSES: strength is that patient is resilient and has stable housing. Weaknesses that patient has a chronic medical and mental illness. INTELLECT: Below average IMPRESSIONS: Mood disorder unspecified Cannabis use disorder PLAN: -Patient is admitted under voluntary status to MHU for stabilization of psychiatric symptoms and safety. Patient signed adult voluntary form and medication consent and is placed in patient's chart. -Medications : Will resume patient on Risperdal 1 mg twice a day for mood stabilization/aggression. -Ativan and Haldol PRN for agitation/aggression -Patient was counselled on substance abuse and desired to cut back on use -Patient was informed of the risks, benefits and side effects of the medication and patient verbally consented to taking the medications. Patient signed med consent form and was placed in chart. -Patient was encouraged to attend groups and work on her coping skills and distress tolerance. -NRT - nicotine patch -SW on board for discharge planning. Patient will require a family meeting prior to discharge. 02/28/19 11:55 02/28/19 12:05
--- NOTE | 2019-02-28 13:24 | P.CONS ---
History of Present Illness - Reason for Consult Medical clearance - History of Present Illness 18-year-old female with a history of ADD and ADHD was admitted after overdose on Cogentin to inpatient medicine and subsequently transferred to psychiatric floor for treatment of suicidal ideations and depression patient is clinically doing well patient denied any fever chills nausea vomiting abdominal pain dysuria. Patient does smoke and is doing better with nicotine patch Review of Systems REVIEW OF SYSTEMS: CONSTITUTIONAL: No fever, no malaise, no fatigue. HEENT: No recent visual problems or hearing problems. Denied any sore throat. CARDIOVASCULAR: No chest pain, orthopnea, PND, no palpitations, no syncope. PULMONARY: No shortness of breath, no cough, no hemoptysis. GASTROINTESTINAL: No diarrhea, no nausea, no vomiting, no abdominal pain. NEUROLOGICAL: No headaches, no weakness, no numbness. HEMATOLOGICAL: Denies any bleeding or petechiae. GENITOURINARY: Denies any burning micturition, frequency, or urgency. MUSCULOSKELETAL/RHEUMATOLOGICAL: Denies any joint pain, swelling, or any muscle pain. ENDOCRINE: Denies any polyuria or polydipsia. The rest of the 14-point review of systems is negative. Past Medical History Additional Past Medical History / Comment(s): ADHD, CEREBRAL PALSY, ARTHRITIS. History of Any Multi-Drug Resistant Organisms: None Reported Past Surgical History: Section Past Anesthesia/Blood Transfusion Reactions: No Reported Reaction Past Psychological History: ADD/ADHD, Depression Smoking Status: Current every day smoker Past Alcohol Use History: None Reported Past Drug Use History: Marijuana Additional Drug Use History / Comment(s): positive for marajuana in drug screen - Past Family History Mother Family Medical History: Hypertension Medications and Allergies Allergies Allergy/AdvReac Type Severity Reaction Status Date / Time amoxicillin [Amoxicillin] Allergy Unknown Verified 02/27/19 18:21 Physical Exam Vitals: Vital Signs Temp Pulse Resp BP 02/27/19 18:09 99.3 F 123 H 18 132/58 Intake and Output 02/27/19 02/28/19 02/28/19 22:59 06:59 14:59 Other: Weight 120.8 kg PHYSICAL EXAMINATION: GENERAL: The patient is alert and oriented x3, not in any acute distress. Well developed, well nourished. HEENT: Pupils are round and equally reacting to light. EOMI. No scleral icterus. No conjunctival pallor. Normocephalic, atraumatic. No pharyngeal erythema. No thyromegaly. CARDIOVASCULAR: S1 and S2 present. No murmurs, rubs, or gallops. PULMONARY: Chest is clear to auscultation, no wheezing or crackles. ABDOMEN: Soft, nontender, nondistended, normoactive bowel sounds. No palpable organomegaly. MUSCULOSKELETAL: No joint swelling or deformity. EXTREMITIES: No cyanosis, clubbing, or pedal edema. NEUROLOGICAL: Gross neurological examination did not reveal any focal deficits. SKIN: No rashes. Results Labs: Abnormal Lab Results - Last 24 Hours (Table) 02/28/19 Range/Units 09:04 Triglycerides 154 H (<150) mg/dL LDL Cholesterol, Calc 100 H (0-99) mg/dL HDL Cholesterol 25 L (40-60) mg/dL Assessment and Plan Plan: Hyperlipidemia: Dietary counseling was provided low-cholesterol diet no need for steroids at this time recheck light and levels in about couple months. -Depression and suicidal ideation management as per primary service -ADD, ADHD -Nicotine abuse: Counseling was provided
[2019-02-28 18:30] LABS: Hemoglobin A1C 5.1 % (4.0-6.0)
[2019-03-01] MEDS: NICOTINE 14MG/24HR PATCH TRANSDERM SCH (08:30)
[2019-03-01] MEDS: risperiDONE 1 MG TAB PO SCH ×2 (08:31→20:54)
[2019-03-01] MEDS: ACETAMINOPHEN TAB 325 MG TAB PO PRN (08:31)
--- NOTE | 2019-03-01 09:20 | P.PN ---
Progress Note - Text Progress Note Date: 03/01/19 Interval History: Patient was seen wandering the hallways and was agreeable to be directed in the office today. Patient was calmer and more directable this morning and states that her mood is gradually improving. She states that the Risperdal is probably helping with her anxiety and "keeping me level". She states that she is enjoying taking it more than her other medications and feels that she needs it for the future. Patient states that she is continuing to go to groups and working on her coping skills. When asked more about her coping skill she states that she needs to remove herself from stressful situations and people including her mother which have been a big trigger for her. She states that she is also looking at doing coloring and also going for a walk or playing with the kids as a stress relief for her. She states that she slept well overnight has a fair appetite and good energy level. At this time patient denies any suicidal or homical ideations, intent or plan. Patient denies any auditory, visual hallucinations and denies any paranoia or delusions. Patient denies any side effects from the medications and has been compliant with meds. Mental Status Exam: General Appearance: Patient appears to be older than stated age is alert, directable and cooperative. Patient has fair hygiene and fair grooming. Patient appears to be overweight. Behavior: Patient is calmly seated without any agitated behavior. Speech: Patient's speech is fluent and nonpressured. Mood/Affect: Patient reports their mood is improving, affect is congruent and constricted. Suicidality/Homicidality: Patient denies having any suicidal or homicidal ideation intent or plan. Perceptions: Patient denies any auditory or visual hallucinations. Though content/process: There is no evidence of any delusional thought content and thought process is linear and goal-directed. Memory and concentration: AOX3, grossly intact for the purposes of this session Judgment and insight: Fair, improving Assessment Mood disorder unspecified Cannabis use disorder Plan: -Patient continues to meet criteria for inpatient psychiatric admission for symptom stabilization and safety. Patient has signed adult voluntary form and medication consent and was placed in patient's chart. -Medications: Continue with Risperdal 1 mg twice a day for mood stabilization/aggression. -When necessary Haldol and Ativan for agitation/aggression. -Patient was encouraged to attend groups and work on her coping skills and distress tolerance. -NRT - nicotine patch -SW on board for discharge planning. Patient will require family meeting prior to discharge. Likely discharge tomorrow and to follow-up with [facility].
[2019-03-02 06:50] VITALS: BP 146/75; PULSE 77; TEMP 98.7
[2019-03-02] MEDS: risperiDONE 1 MG TAB PO SCH (08:25)
[2019-03-02] MEDS: NICOTINE 14MG/24HR PATCH TRANSDERM SCH (08:25)
--- NOTE | 2019-03-02 09:21 | P.DS ---
Providers Date of admission: 02/27/19 17:31 Expected date of discharge: 03/02/19 Attending physician: Sg Gonzalez MD Consults: 02/27/19 18:39 Consult Physician Routine Consulting Provider: [facility] Hospitalists Consult Reason/Comments: H&P and medical Do you want consulting provider notified?: Yes Primary care physician: Brett Restrepo - Discharge Diagnosis(es) (1) Mood disorder Current Visit: Yes Status: Acute Priority: High (2) Cannabis use disorder, mild, abuse Current Visit: Yes Status: Acute Priority: Medium Hospital Course: Admission HPI: Patient is a 23-year-old female who currently lives with her cousin in an apartment and is supported by her mother and sister financially. Patient has a history of cerebral palsy, depression and ADHD by history who initially presented to the hospital after an overdose of taking 15 of her Cogentin tablets. At that time in the ER patient did admit to depression and taking her medications impulsively. Psychiatry was consulted at that time for depression and suicide attempt. After the psychiatry consultation patient was titrated up to Risperdal 1 mg twice a day for mood stabilization/psychosis and was recommended to be transferred to the mental health unit. Patient was agreeable to be seen today for admission evaluation and patient was more directable and cooperative. Patient had improved insight and states that her trigger was her mother yelling at her over the phone however patient states that it was because she had lost her kids. She claims that her mother has been a chronic trigger f or her and leads her to do impulsive things. She states that after she overdosed she realized that she needed to stay alive for her kids and regretted it. She did describe feeling depressed and feeling irritable with mood swings. She spoke about a stressor of people disrespecting her which was making her angry at home. Patient also spoke about disrespect on the medical floors and overuse of power however feels a lot safer now she is on the mental health unit and can walk around and doesn't have to stare at "the 4 lambert". Patient admits to ongoing anxiety as well. She states that she was hearing voices and having some visual hallucinations however they have dissipated at this time. At this time patient denies any suicidal or homical ideations, intent or plan. Patient admits to smoking marijuana approximately 1.5 g every other day and claims that she quit using methamphetamines about a month ago. She admitted to smoking cigarettes approximately one pack per day. She denies any alcohol use or any other illicit drugs. Patient denies any flight of ideas racing thoughts and increased in goal directed behavior. Hospital course: Upon admission to the unit patient was initially bizarre and irritable/agitated. Patient was however directable and agreeable to commence treatment. Patient got along well with other patients on the unit and followed unit protocol. Patient was compliant with the medications and denied any side effects throughout hospital course. Patient was started on Risperdal and titrated up to 1 mg twice a day for mood stabilization/agitation. Patient spoke of her stressors and engaged in therapy both group and individual. Patient was also seen by medical team for history and physical exam. Throughout the course of the hospitalization patient gradually improved with regards to mood, irritability, behavior, sleep and became future oriented with improved insight and judgment. Patient states that she has learned more coping skills and has worked on her impulsivity and distress tolerance during groups while on the unit. On the day of discharge patient denied any suicidal or homicidal ideations intent or plan denied any auditory or visual hallucinations. Patient endorsed wanting to live for her future and her children. The patient denied any access to guns or weapons. Patient denied any paranoia and did not endorse any delusions. Patient does have a significant history of substance abuse and was counseled on abstaining from all substances including alcohol and marijuana. Patient was also counseled on the medications and need for regular compliance and was encouraged to follow- up with their outpatient appointment for mental health and also for primary care. Prior to discharge a family meeting will be arranged by social and political studies professor to answer any questions and ensure safety upon discharge. Mental status exam: General Appearance: Patient appears to be older than stated age is alert,directable, and cooperative. Patient is in no acute distress and has improved hygiene and grooming Behavior: Patient is calmly seated without any agitated behavior. Speech: Patient's speech is fluent and nonpressured. Mood/Affect: Patient reports their mood is "much better ", affect is congruent and euthymic. Suicidality/Homicidality: Patient denies having any suicidal or homicidal ideation intent or plan. Perceptions: Patient denies any auditory or visual hallucinations. Though content/process: There is no evidence of any delusional thought content and thought process is linear and goal-directed. Memory and concentration: AOX3, grossly intact for the purposes of this session. Can spell "WORLD" backwards correctly. Judgment and insight: fair, improved Impression: Mood disorder unspecified Cannabis use disorder, mild Plan: -Continue with discharge today as patient has improved and stabilized psychiatrically and is not currently an imminent threat to herself and/or others. -Continue medication: Risperdal 1 mg twice a day for mood stabilization/irritability. -Patient was counseled on the need for medication compliance and appropriate follow-up at mental health and also primary care for medical issues. Patient verbalized understanding and agreed. -Social work to arrange for and conduct family meeting to ensure safety upon discharge and answer any questions/concerns. Social work also to arrange for patients follow up appointments at [facility] for psychiatric follow-up along with primary care appointment. -Patient counseled on abstaining from recreational drugs and marijuana and alcohol. Was informed/educated on the adverse effects on their physical and mental health. patient stated that she liked to cut back on her own. -Patient was instructed to return to the hospital or seek immediate medical care if their psychiatric or medical systems do worsen or reoccur. Allergies Allergy/AdvReac Type Severity Reaction Status Date / Time amoxicillin [Amoxicillin] Allergy Unknown Verified 02/27/19 18:[address] Glu mg/dL 100 02/28/19 09:04 Hemoglobin A1c 5.1 % (4.0-6.0) 02/28/19 09:04 Triglycerides 154 mg/dL (<150) H 02/28/19 09:04 Cholesterol 156 mg/dL (<200) 02/28/19 09:04 LDL Cholesterol, Calc 100 mg/dL (0-99) H 02/28/19 09:04 HDL Cholesterol 25 mg/dL (40-60) L 02/28/19 09:04 TSH 2.830 mIU/L (0.465-4.680) 02/28/19 09:04 Vital Signs Temp 98.7 F 03/02/19 06:49 Pulse 77 03/02/19 06:49 Resp 18 03/02/19 06:49 BP 146/75 03/02/19 06:49 Pulse Ox Patient Condition at Discharge: Stable Plan - Discharge Summary Discharge Rx Participant: No New Discharge Prescriptions: New RX: Nicotine 14Mg/24Hr Patch [Habitrol] 1 patch TRANSDERM DAILY 14 Days patch RX: risperiDONE [RisperDAL] 1 mg PO BID 14 Days tab Discharge Medication List RX: Nicotine 14Mg/24Hr Patch [Habitrol] 1 patch TRANSDERM DAILY 14 Days patch 03/02/19 [Rx] RX: risperiDONE [RisperDAL] 1 mg PO BID 14 Days tab 03/02/19 [Rx] Follow up Appointment(s)/Referral(s): [facility] [Outside] - 03/07/19 1:00 pm (w/ Joana) Patient Instructions/Handouts: Suicide Prevention (DC) Activity/Diet/Wound Care/Special Instructions: Activity and diet as tolerated. No guns or weapons in the home. Refrain from alcohol and drugs not prescribed by your physician. Take all medications as prescribed, attend follow up appointments as scheduled. If in need of medication refills, please go to your primary care physician, or to your out patient psychiatric physician. If in crisis, please call , or go the nearest ER for an evaluation. Discharge Disposition: HOME SELF-CARE
== END 2019-03-02 11:28 | disposition home or self-care (01) | DRG 885 ==
LOC: 3MHU 17:31
PROVIDERS: ADMIT Psychiatry & Neurology Psychiatry; ATTEND Psychiatry & Neurology Psychiatry
DX: F39 Unspecified mood [affective] disorder (principal); E78.5 Hyperlipidemia, unspecified; F12.10 Cannabis abuse, uncomplicated; G80.9 Cerebral palsy, unspecified; F90.9 Attention-deficit hyperactivity disorder, unspecified type; F41.9 Anxiety disorder, unspecified; T44.3X2A Poisoning by other parasympatholytics [anticholinergics and antimuscarinics] and spasmolytics, intentional self-harm, initial encounter; F15.11 Other stimulant abuse, in remission; M19.90 Unspecified osteoarthritis, unspecified site; F17.210 Nicotine dependence, cigarettes, uncomplicated; Z71.6 Tobacco abuse counseling; Z79.899 Other long term (current) drug therapy; Z91.5 Personal history of self-harm; Z98.891 History of uterine scar from previous surgery; Z88.0 Allergy status to penicillin; Z81.8 Family history of other mental and behavioral disorders; Z82.49 Family history of ischemic heart disease and other diseases of the circulatory system
CPT/HCPCS: 80061; 83036; 84443

== ENCOUNTER 2019-11-30 13:21 | Emergency (ER) | payer OTHER ==
[2019-11-30 13:54] VITALS: RESP 16; TEMP 98.4
--- NOTE | 2019-11-30 14:37 | ED ---
Female Urogenital HPI - General Chief complaint: Vaginal Bleeding Stated complaint: Vaginal Bleeding 13 Weeks Preg Time Seen by Provider: 11/30/19 14:10 Source: patient, RN notes reviewed, old records reviewed Mode of arrival: ambulatory Limitations: no limitations - History of Present Illness Initial comments: Patient is a 33-year-old female since returned today with light vaginal bleeding starting today. She is approximately 13 weeks . She is female. She states that she is high-risk due to preeclampsia and her last . She states that she's had no significant bleeding when she rides emergency department. She denies any localized pain. She did have an INITIAL CONFIRMED AN IUP a few weeks ago. . PATIENT STATES THAT SHE'S HAD NO CHEST PAIN, SHORTNESS OF BREATH, NAUSEA VOMITING. - Related Data Home Medications Medication Instructions Recorded Confirmed Albuterol Inhaler [Ventolin Hfa 2 puff INHALATION RT-QID PRN 11/30/19 11/30/19 Inhaler] Pnv No.95/Ferrous Fum/Folic AC 1 tab PO DAILY 11/30/19 11/30/19 [ Multivitamin Tablet] Umeclidinium Amigo [Incruse 1 puff INHALATION RT-DAILY PRN 11/30/19 11/30/19 Ellipta] Previous Rx's Medication Instructions Recorded Cephalexin [Keflex] 500 mg PO Q6HR 3 Days #12 cap 11/30/19 Allergies Allergy/AdvReac Type Severity Reaction Status Date / Time amoxicillin [Amoxicillin] Allergy Unknown Verified 11/30/19 14:37 Review of Systems ROS Statement: Those systems with pertinent positive or pertinent negative responses have been documented in the HPI. ROS Other: All systems not noted in ROS Statement are negative. Past Medical History Additional Past Medical History / Comment(s): ADHD, CEREBRAL PALSY, ARTHRITIS. History of Any Multi-Drug Resistant Organisms: None Reported Past Surgical History: Section Past Anesthesia/Blood Transfusion Reactions: No Reported Reaction Past Psychological History: ADD/ADHD, Depression Smoking Status: Current every day smoker Past Alcohol Use History: None Reported Past Drug Use History: Marijuana - Past Family History Mother Family Medical History: Hypertension General Exam - General Exam Comments Initial Comments: 23 year old female, no acute distress. Limitations: no limitations General appearance: alert, in no apparent distress Head exam: Present: atraumatic, normocephalic, normal inspection Eye exam: Present: normal appearance, PERRL, EOMI. Absent: scleral icterus, conjunctival injection, periorbital swelling ENT exam: Present: normal exam, mucous membranes moist Neck exam: Present: normal inspection. Absent: tenderness, meningismus, lymphadenopathy Respiratory exam: Present: normal lung sounds bilaterally. Absent: respiratory distress, wheezes, rales, rhonchi, stridor External exam: Present: normal external exam Speculum exam: Present: normal speculum exam By manual exam: Present: normal by manual exam Back exam: Present: normal inspection Neurological exam: Present: alert, oriented X3, CN II-XII intact Psychiatric exam: Present: normal affect, normal mood Skin exam: Present: warm, dry, intact, normal color. Absent: rash Course Vital Signs 11/30/19 11/30/19 13:52 16:36 Temperature 98.4 F 98.4 F Pulse Rate 100 79 Respiratory 16 16 Rate Blood Pressure 105/63 145/56 O2 Sat by Pulse 98 98 Oximetry Medical Decision Making - Medical Decision Making 23 year old female, at 13 weeks with history of faint bleeding yesterday. Pelvic exam shows no tenderness or bleeding today. She is Rh positibe. UA shows bacteruria and willt reated with antibiotic. US shows viable IUP. Discussed return parameters and OB follow up. - Lab Data Result diagrams: 11/30/19 14:42 Lab Results 11/30/19 11/30/19 11/30/19 Range/Units 14:30 14:42 14:42 WBC 8.4 (3.8-10.6) k/uL RBC 4.20 (3.80-5.40) m/uL Hgb 12.7 (11.4-16.0) gm/dL Hct 37.9 (34.0-46.0) % MCV 90.2 (80.0-100.0) fL MCH 30.2 (25.0-35.0) pg MCHC 33.4 (31.0-37.0) g/dL RDW 13.0 (11.5-15.5) % Plt Count 292 (150-450) k/uL Neutrophils % 64 % Lymphocytes % 27 % Monocytes % 4 % Eosinophils % 4 % Basophils % 0 % Neutrophils # 5.3 (1.3-7.7) k/uL Lymphocytes # 2.2 (1.0-4.8) k/uL Monocytes # 0.3 (0-1.0) k/uL Eosinophils # 0.3 (0-0.7) k/uL Basophils # 0.0 (0-0.2) k/uL PT 9.5 (9.0-12.0) sec INR 0.9 (<1.2) APTT 24.1 (22.0-30.0) sec HCG, Quant mIU/mL Urine Color Yellow Urine Appearance Cloudy H (Clear) Urine pH 7.0 (5.0-8.0) Ur Specific [place] 1.021 (1.001-1.035) Urine Protein Trace H (Negative) Urine Glucose (UA) Negative (Negative) Urine Ketones Negative (Negative) Urine Blood Negative (Negative) Urine Nitrite Negative (Negative) Urine Bilirubin Negative (Negative) Urine Urobilinogen <2.0 (<2.0) mg/dL Ur Leukocyte Esterase Moderate H (Negative) Urine RBC 8 H (0-5) /hpf Urine WBC 21 H (0-5) /hpf Ur Squamous Epith Cells 16 H (0-4) /hpf Urine Bacteria Rare H (None) /hpf Hyaline Casts 1 (0-2) /lpf Urine Mucus Few H (None) /hpf Trichomonas Ag (Rapid) (Negative) Blood Type Blood Type Recheck Bld Type Recheck Status 11/30/19 11/30/19 11/30/19 Range/Units 14:42 14:42 16:30 WBC (3.8-10.6) k/uL RBC (3.80-5.40) m/uL Hgb (11.4-16.0) gm/dL Hct (34.0-46.0) % MCV (80.0-100.0) fL MCH (25.0-35.0) pg MCHC (31.0-37.0) g/dL RDW (11.5-15.5) % Plt Count (150-450) k/uL Neutrophils % % Lymphocytes % % Monocytes % % Eosinophils % % Basophils % % Neutrophils # (1.3-7.7) k/uL Lymphocytes # (1.0-4.8) k/uL Monocytes # (0-1.0) k/uL Eosinophils # (0-0.7) k/uL Basophils # (0-0.2) k/uL PT (9.0-12.0) sec INR (<1.2) APTT (22.0-30.0) sec HCG, Quant 21908.2 mIU/mL Urine Color Urine Appearance (Clear) Urine pH (5.0-8.0) Ur Specific [place] (1.001-1.035) Urine Protein (Negative) Urine Glucose (UA) (Negative) Urine Ketones (Negative) Urine Blood (Negative) Urine Nitrite (Negative) Urine Bilirubin (Negative) Urine Urobilinogen (<2.0) mg/dL Ur Leukocyte Esterase (Negative) Urine RBC (0-5) /hpf Urine WBC (0-5) /hpf Ur Squamous Epith Cells (0-4) /hpf Urine Bacteria (None) /hpf Hyaline Casts (0-2) /lpf Urine Mucus (None) /hpf Trichomonas Ag (Rapid) Positive H (Negative) Blood Type O Positive Blood Type Recheck O Pos Bld Type Recheck Status No - Radiology Data Radiology results: report reviewed US shows viable IUP measuring 13 weeks, heart rate 152 bpm. Disposition Clinical Impression: 13 weeks gestation of , UTI in , Vaginal bleeding during Disposition: HOME SELF-CARE Condition: Good Instructions (If sedation given, give patient instructions): Urinary Tract Infection in (ED) Additional Instructions: Patient is to drink plenty fluids. Follow-up with your SOCIAL WORK PROFESSOR. Return to the ED if any alarming signs or symptoms occur. Prescriptions: Cephalexin [Keflex] 500 mg PO Q6HR 3 Days #12 cap Is patient prescribed a controlled substance at d/c from ED?: No Referrals: Kaye West MD [Primary Care Provider] - 1-2 days Time of Disposition: 16:25
[2019-11-30 15:01] LABS: Basophils % (A) 0 %; Eosinophils # (A) 0.3 k/uL (0-0.7); Eosinophils % (A) 4 %; HCT 37.9 % (34.0-46.0); HGB 12.7 gm/dL (11.4-16.0); Lymphocytes # (A) 2.2 k/uL (1.0-4.8); Lymphocytes % (A) 27 %; MCH 30.2 pg (25.0-35.0); MCHC 33.4 g/dL (31.0-37.0); MCV 90.2 fL (80.0-100.0); Mean Platelet Volume 7.2; Monocytes # (A) 0.3 k/uL (0-1.0); Monocytes % (A) 4 %; Neutrophils # (A) 5.3 k/uL (1.3-7.7); Neutrophils % (A) 64 %; Platelet Count 292 k/uL (150-450); WBC 8.4 k/uL (3.8-10.6)
[2019-11-30 15:08] LABS: Appearance,Urine Cloudy (Clear); Bacteria,Urine Rare /hpf; Bilirubin,Urine Negative (Negative); Blood,Urine Negative (Negative); Color,Urine Yellow; Glucose,Urine (UA) Negative (Negative); Hyaline Casts,Urine 1 /lpf (0-2); Ketones,Urine Negative (Negative); Leukocyte Esterase,Urine Moderate (Negative); Mucus,Urine Few /hpf; Nitrite,Urine Negative (Negative); Protein,Urine Trace (Negative); RBC,Urine 8 /hpf (0-5); Specific Gravity,Urine 1.021 (1.001-1.035); Squamous Epithelial Cell,Urine 16 /hpf (0-4); Urobilinogen,Urine <2.0 mg/dL (<2.0); WBC,Urine 21 /hpf (0-5)
[2019-11-30 15:19] LABS: INR 0.9 (<1.2); Partial Thromboplastin Time 24.1 sec (22.0-30.0); Prothrombin Time 9.5 sec (9.0-12.0)
--- NOTE | 2019-11-30 15:55 | US ---
EXAMINATION TYPE: Transabdominal DATE OF EXAM: 11/30/2019 3:14 PM COMPARISON: NONE CLINICAL HISTORY: bleeding. Spotting x1 hour. Difficult exam due to patient body habitus EXAM PERFORMED: Transabdominal (TA) EXAM MEASUREMENTS: GESTATIONAL AGE / DATING Physician Established: (13 weeks/3 days) EDC: 06/03/2020 Dates by LMP: (13 weeks/3 days) EDC: 06/03/2020 Dates by First Scan: No previous this is first scan ( Dates by Current Scan for: (13 weeks/6 days) EDC: 05/31/2020 MATERNAL ANATOMY Uterus: 10.5 x 9.2 x 9.7 cm Right Ovary: 2.4 x 1.7 x 1.8 cm Left Ovary: 1.7 x 1.5 x 1.7 cm Post CDS / Adnexa: wnl Presence of free fluid: No Presence of corpus luteal cyst: No Presence of subchorionic bleed: No GESTATION / SURVEY CRL: 7.9 cm (13 weeks/6 days) Heart Rate: 152pm Rhythm: Normal IUP: Viable IUP Date of LMP: Unsure Beta HcG (if available): Not available at this time IMPRESSION: Viable IUP, measurements consistent with dates.
[2019-11-30 16:39] VITALS: BP 145/56; PULSE 79
[2019-12-02 13:27] LABS: N. gonorrhoeae,PCR Negative (Neg,Equiv); Neisseria Source Vagina
== END 2019-11-30 16:36 | disposition home or self-care (01) ==
LOC: EC 13:21
DX: O23.41 Unspecified infection of urinary tract in pregnancy, first trimester (principal); O46.8X1 Other antepartum hemorrhage, first trimester; O99.331 Smoking (tobacco) complicating pregnancy, first trimester; Z3A.13 13 weeks gestation of pregnancy; F17.200 Nicotine dependence, unspecified, uncomplicated; Z88.0 Allergy status to penicillin
CPT/HCPCS: 36415; 76801; 81001; 84702; 85025; 85610; 85730; 86900; 86901; 87070; 87086; 87591; 87808; 99284

== ENCOUNTER 2020-01-15 12:57 | Outpatient (CLI) | payer OTHER ==
[2020-01-15 14:30] LABS: Appearance,Urine Cloudy (Clear); Bacteria,Urine Rare /hpf; Bilirubin,Urine Negative (Negative); Blood,Urine Negative (Negative); Color,Urine Yellow; Glucose,Urine (UA) Negative (Negative); Hyaline Casts,Urine 1 /lpf (0-2); Ketones,Urine Negative (Negative); Leukocyte Esterase,Urine Large (Negative); Mucus,Urine Many /hpf; Nitrite,Urine Negative (Negative); Protein,Urine Negative (Negative); RBC,Urine 3 /hpf (0-5); Specific Gravity,Urine 1.019 (1.001-1.035); Squamous Epithelial Cell,Urine 8 /hpf (0-4); WBC,Urine 26 /hpf (0-5)
[2020-01-15 14:37] LABS: Amphetamine Screen,Urine Detected (NotDetected); Barbiturate Screen,Urine Not Detected (NotDetected); Benzodiazepines Screen,Urine Not Detected (NotDetected); Cocaine Screen,Urine Not Detected (NotDetected); Methadone Screen, Urine Not Detected (NotDetected); Opiate Screen,Urine Not Detected (NotDetected); Oxycodone Screen, Urine Not Detected (NotDetected); Phencyclidine Screen,Urine Not Detected (NotDetected); Tricyclic Antidepressant,Urine Not Detected (NotDetected); Urn Cannabinoid Scrn Detected (NotDetected)
--- NOTE | 2020-01-15 14:41 | US ---
EXAMINATION TYPE: US OB >= 14 wk fetus DATE OF EXAM: 01/15/2020 COMPARISON: Prior ultrasound November 30, 2019. CLINICAL HISTORY: CompleteUS;No care; unable to doppler FHTNo heart tones. Abnormal ex am in the clinician office. TECHNIQUE: Transabdominal (TA) GESTATIONAL AGE / DATING Physician Established: (20 weeks/6 days) EDC: 06/03/2020 Dates by LMP: (20 weeks/3 days) EDC: 05/31/2020 Dates by First Scan: (13 weeks/6 days) EDC: 05/31/2020 Dates by Current Scan: (19 weeks/5 days) EDC: 06/05/2020 SURVEY IUP: Single PLACENTA: Anterior PREVIA: No Previa FABIO: 12.22 cm Normal CERVICAL LENGTH (transabdominal: norm > 3.0cm): 3.6 cm BIOMETRY PRESENTATION: Vertex LIE: Transverse with head maternal L BPD: 4.55 cm 19 weeks / 5 days HC: 17.62 cm 20 weeks / 1 days AC: 14.4 cm 19 weeks / 5 days FL: 3.17 cm 19 weeks / 6 days ESTIMATED WEIGHT IN GRAMS: 315.23 grams ESTIMATED WEIGHT IN LBS/OZ: 0 lbs. 11 oz. WEIGHT PERCENTAGE BASED ON ESTABLISHED DATES: 16.9% HC/AC: 1.22 cm Normal FL/AC: 22.00 cm Normal HEART RATE: 165 bpm RHYTHM: Normal Redemonstration of single intrauterine gestation. heart tones are detected and within normal li mits. No placenta previa. No cervical thinning. Calculated amniotic fluid index within normal limits. biometry measurements are congruent and within normal limits with satisfactory interval growth noted. Transverse presentation fetus is currently seen. IMPRESSION: As above. heart tones successfully identified on this study.
[2020-01-15 15:24] LABS: Basophils % (A) 0 %; Eosinophils # (A) 0.3 k/uL (0-0.7); Eosinophils % (A) 5 %; HCT 35.8 % (34.0-46.0); HGB 11.6 gm/dL (11.4-16.0); Lymphocytes # (A) 2.1 k/uL (1.0-4.8); Lymphocytes % (A) 32 %; MCH 29.9 pg (25.0-35.0); MCHC 32.5 g/dL (31.0-37.0); MCV 92.1 fL (80.0-100.0); Mean Platelet Volume 7.2; Monocytes # (A) 0.4 k/uL (0-1.0); Monocytes % (A) 7 %; Neutrophils # (A) 3.7 k/uL (1.3-7.7); Neutrophils % (A) 55 %; Platelet Count 262 k/uL (150-450); RBC 3.89 m/uL (3.80-5.40); RDW 13.8 % (11.5-15.5); WBC 6.7 k/uL (3.8-10.6)
[2020-01-15 15:53] VITALS: BP 137/59; PULSE 98; RESP 16; TEMP 98.3
--- NOTE | 2020-01-15 18:50 | P.MSEPDOC ---
Presenting Problems - Arrival Data Date of Arrival on Unit: 01/15/20 Time of Arrival on Unit: 13:01 Mode of Transport: Ambulatory - Complaint OB-Reason for Admission/Chief Complaint: Pain Comment: Cramping x 2 days Medical History - Information : 2 Para: 1 Term: 0 : 1 Abortions: Spontaneous or Elective: 0 Number of Living Children: 1 - Gestational Age Gestational Age by VENICE (wks/days): 20 Weeks and 0 Days - History Complications: No Care, Smoker, Hx. Substance Abuse Comment: Pt Hep C positive; UDS positive for Methamphetamines, Amphetamines and MJ. Pt admits to MJ use. Review of Systems - Review of Systems Constitutional: No problems Breast: No problems ENT: No problems Cardiovascular: No problems Respiratory: No problems Gastrointestinal: No problems Genitourinary: Dysuria, Urgency, Increased frequency Musculoskeletal: No problems Neurological: No problems Skin: No problems Vital Signs - Temperature Temperature: 98.3 F Temperature Source: Temporal Artery Scan - Pulse Right Sitting Brachial Pulse Rate: 98 Pulse Assessment Method: Pulse Oximetry - Respirations Respiratory Rate: 16 Oxygen Delivery Method: Room Air O2 Sat by Pulse Oximetry: 97 - Blood Pressure Right Arm Sitting Blood Pressure: 137/59 Blood Pressure Mean: 85 Blood Pressure Source: Automatic Cuff Medical Screen Scoring (Pre) - Cervical Exam Dilation: Exam Deferred Effacement: Exam Deferred Membranes: Intact - Uterine Contractions Frequency: N/A Duration: N/A Intensity: N/A - Maternal Vital Signs Maternal Temperature: N/A Maternal Blood Pressure: N/A Signs of Preeclampsia: N/A Maternal Respirations: N/A - Maternal Trauma Maternal Trauma: N/A - Assessment - Baby A Baseline FHR: 165 Position: N/A Station: N/A - Total Score - Baby A Total Score - Baby A: 0 - Total Score - Baby B Total Score - Baby B: 0 - Total Score - Baby C Total Score - Baby C: 0 - Level of Risk - Baby A Level of Risk - Baby A: Low (0-5) - Level of Risk - Baby B Level of Risk - Baby B: Low (0-5) - Level of Risk - Baby C Level of Risk - Baby C: Low (0-5) Physician Notification (Pre) - Physician Notified Physician Notified Date: 01/15/20 Physician Notified Time: 15:33 New Order Received: Yes - Notification Comment Comment: Spk c\Dr. Murillo, advsd DOM, no care, EDC 06/03/20 per early US at [facility]. Pt Hep C +, hx crack and meth use, pt states MJ use currently. Orders rec'd for labs, UDS and complete US. Results reviewed c\Dr. Espinoza: US report, CBC, UA and UDS. States to d/c pt with. phone numbers for [place] and [place]. Send urine for culture. Disposition - Disposition OB Disposition: Discharge to home, Written follow up instructions reviewed Discharge Date: 01/15/20 Discharge Time: 15:42 I agree with the RN Medical Screening Exam: Yes Risk & Benefit of care provided described in d/c instruction: Yes Diagnosis: RELATED CONDITIONS, UNSPECIFIED, SECOND TRIMESTER
[2020-01-15 20:20] LABS: Hepatitis B Surface Antigen Non-Reactive (Non-Reactive)
[2020-01-16 15:59] LABS: HIV 2 AB Non-Reactive (Non-Reactive); HIV AB P24 Non-Reactive (Non-Reactive); HIV P24 AG Non-Reactive (Non-Reactive)
== END 2020-01-15 15:42 | disposition home or self-care (01) ==
LOC: FBPOP 12:57
PROVIDERS: ATTEND Obstetrics & Gynecology
DX: O26.92 Pregnancy related conditions, unspecified, second trimester (principal); O32.2XX0 Maternal care for transverse and oblique lie, not applicable or unspecified; Z3A.20 20 weeks gestation of pregnancy
CPT/HCPCS: 86900; 86901; 86762; 82947; 85025; 86850; 87340; 81001; 86780; 80306; 87390; 76805; G0463; 99213

== ENCOUNTER → 2020-02-12 | Outpatient (CLI) | payer OTHER ==
[2020-02-12 16:02] LABS: Basophils % (A) 1 %; Eosinophils # (A) 0.2 k/uL (0-0.7); Eosinophils % (A) 3 %; HCT 35.9 % (34.0-46.0); HGB 11.6 gm/dL (11.4-16.0); Lymphocytes # (A) 2.1 k/uL (1.0-4.8); Lymphocytes % (A) 27 %; MCH 29.1 pg (25.0-35.0); MCHC 32.4 g/dL (31.0-37.0); MCV 89.8 fL (80.0-100.0); Mean Platelet Volume 7.2; Monocytes # (A) 0.4 k/uL (0-1.0); Monocytes % (A) 5 %; Neutrophils # (A) 4.8 k/uL (1.3-7.7); Neutrophils % (A) 63 %; Platelet Count 274 k/uL (150-450); RBC 3.99 m/uL (3.80-5.40); RDW 13.6 % (11.5-15.5); WBC 7.7 k/uL (3.8-10.6)
[2020-02-12 16:07] LABS: Appearance,Urine Cloudy (Clear); Bacteria,Urine Rare /hpf; Bilirubin,Urine Negative (Negative); Blood,Urine Negative (Negative); Color,Urine Yellow; Glucose,Urine (UA) Negative (Negative); Ketones,Urine Negative (Negative); Leukocyte Esterase,Urine Large (Negative); Mucus,Urine Few /hpf; Nitrite,Urine Negative (Negative); Protein,Urine Trace (Negative); RBC,Urine 7 /hpf (0-5); Specific Gravity,Urine 1.025 (1.001-1.035); Squamous Epithelial Cell,Urine 21 /hpf (0-4); Urobilinogen,Urine <2.0 mg/dL (<2.0); WBC,Urine 34 /hpf (0-5)
[2020-02-12 16:25] LABS: Protein/Creatinine Ratio,Urine 0.064
[2020-02-13 01:51] LABS: African American GFR (CKD) 154.8 (60.0-200.0); Non-African American GFR(CKD) 133.6 (60.0-200.0)
[2020-02-13 04:35] LABS: Urine Alcohol Negative (Negative); Urine Barbiturate Negative (Negative); Urine Cocaine Negative (Negative); Urine Methadone Negative (Negative); Urine Opiates Negative (Negative); Urine Phencyclidine Negative (Negative)
[2020-02-13 05:41] LABS: Hepatitis B Surface Antigen Non-Reactive (Non-Reactive); Hepatitis C IgG Antibody Reactive (Non-Reactive)
[2020-02-13 06:38] LABS: HIV 2 AB Non-Reactive (Non-Reactive); HIV AB P24 Non-Reactive (Non-Reactive); HIV P24 AG Non-Reactive (Non-Reactive)
== END | disposition home or self-care (01) ==
LOC: LABWHC1 15:23
DX: Z34.90 Encounter for supervision of normal pregnancy, unspecified, unspecified trimester (principal); Z87.59 Personal history of other complications of pregnancy, childbirth and the puerperium; Z86.19 Personal history of other infectious and parasitic diseases; F19.90 Other psychoactive substance use, unspecified, uncomplicated
CPT/HCPCS: 36415; 80306; 81001; 82565; 82570; 82947; 84156; 84450; 84460; 84520; 85025; 86762; 86780; 86787; 86803; 86850; 86900; 86901; 87340; 87390; 87522

== ENCOUNTER 2020-05-11 14:14 | Outpatient (CLI) | payer SELFPAY ==
[2020-05-11 15:29] LABS: Amphetamine Screen,Urine Not Detected (NotDetected); Barbiturate Screen,Urine Not Detected (NotDetected); Benzodiazepines Screen,Urine Not Detected (NotDetected); Cocaine Screen,Urine Not Detected (NotDetected); Methadone Screen, Urine Not Detected (NotDetected); Opiate Screen,Urine Not Detected (NotDetected); Oxycodone Screen, Urine Not Detected (NotDetected); Phencyclidine Screen,Urine Not Detected (NotDetected); Tricyclic Antidepressant,Urine Not Detected (NotDetected); Urn Cannabinoid Scrn Detected (NotDetected)
[2020-05-11 15:50] VITALS: BP 128/60; PULSE 127; RESP 15; TEMP 97.2
--- NOTE | 2020-05-12 06:30 | P.MSEPDOC ---
Presenting Problems - Arrival Data Date of Arrival on Unit: 05/11/20 Time of Arrival on Unit: 14:29 Mode of Transport: Ambulatory - Complaint OB-Reason for Admission/Chief Complaint: Other Comment: contx Medical History - Information : 2 Para: 1 Term: 0 : 1 Abortions: Spontaneous or Elective: 0 Number of Living Children: 1 - Gestational Age Gestational Age by VENICE (wks/days): 36 Weeks and 5 Days - History Complications: Hx. Substance Abuse Comment: pt has Hep C and has used Meth-IV during the Review of Systems - Review of Systems Constitutional: No problems Breast: No problems ENT: No problems Cardiovascular: No problems Respiratory: No problems Gastrointestinal: No problems Genitourinary: No problems Musculoskeletal: No problems Neurological: No problems Skin: No problems Vital Signs - Temperature Temperature: 97.2 F Temperature Source: Temporal Artery Scan - Pulse Pulse Oximetery Pulse Rate: 127 Pulse Assessment Method: Pulse Oximetry - Respirations Respiratory Rate: 15 Oxygen Delivery Method: Room Air O2 Sat by Pulse Oximetry: 98 - Blood Pressure Right Arm Supine Blood Pressure: 128/60 Blood Pressure Mean: 82 Blood Pressure Source: Automatic Cuff Medical Screen Scoring (Pre) - Cervical Exam Dilation: 0 cm = 0 Membranes: Intact - Uterine Contractions Frequency: N/A Duration: N/A Intensity: N/A - Maternal Vital Signs Maternal Temperature: N/A Maternal Blood Pressure: N/A Signs of Preeclampsia: N/A Maternal Respirations: N/A - Maternal Trauma Maternal Trauma: N/A - Assessment - Baby A Baseline FHR: 155 Heart Rate - NICHD Category: Category I (Normal) = 0 NST: Reactive Position: N/A Station: N/A - Total Score - Baby A Total Score - Baby A: 0 - Total Score - Baby B Total Score - Baby B: 0 - Total Score - Baby C Total Score - Baby C: 0 - Level of Risk - Baby A Level of Risk - Baby A: Low (0-5) - Level of Risk - Baby B Level of Risk - Baby B: Low (0-5) - Level of Risk - Baby C Level of Risk - Baby C: Low (0-5) Physician Notification (Pre) - Physician Notified Physician Notified Date: 05/11/20 Physician Notified Time: 14:58 New Order Received: Yes - Notification Comment Comment: send UDS, recheck cervix in 1 hr and send pt home if she has a reactive NST and no cervical change. Disposition - Disposition OB Disposition: Triage, Discharge to home, Written follow up instructions reviewed Discharge Date: 05/11/20 Discharge Time: 15:50 I agree with the RN Medical Screening Exam: Yes Risk & Benefit of care provided described in d/c instruction: Yes Diagnosis: FALSE LABOR BEFORE 37 COMPLETED WEEKS OF GEST, THIRD TRI (Patient presented to triage with complaints of contractions and concern for labor. care is at a high-risk facility secondary to polysubstance abuse. heart tones are category 1. Patient is having no significant contractions and cervix is closed. After prolonged observation there is no evidence of labor and no evidence of maternal/ compromise. Patient's felt to be stable for discharge home to contact her physician and follow-up as scheduled. Patient was instructed to return if she has any concerns, decreased movement, concern for labor.)
== END 2020-05-11 15:54 | disposition home or self-care (01) ==
LOC: FBPOP 14:14
PROVIDERS: ATTEND Obstetrics & Gynecology
DX: O47.03 False labor before 37 completed weeks of gestation, third trimester (principal); Z3A.36 36 weeks gestation of pregnancy
CPT/HCPCS: 59025; 80306; 99213

== ENCOUNTER 2020-05-23 14:08 | Outpatient (CLI) | payer SELFPAY ==
[2020-05-23 18:15] VITALS: BP 123/59; PULSE 96; RESP 16; TEMP 97
--- NOTE | 2020-05-24 10:48 | P.MSEPDOC ---
Presenting Problems - Arrival Data Date of Arrival on Unit: 05/23/20 Time of Arrival on Unit: 14:00 Mode of Transport: Ambulatory - Complaint OB-Reason for Admission/Chief Complaint: Other Comment: fall Medical History - Information : 2 Para: 1 Term: 1 : 0 Abortions: Spontaneous or Elective: 0 Number of Living Children: 1 - Gestational Age Gestational Age by VENICE (wks/days): 37 Weeks and 4 Days - History Comment: pt seen high risk doctor at [facility] Review of Systems - Review of Systems Constitutional: No problems Breast: No problems ENT: No problems Cardiovascular: No problems Respiratory: No problems Gastrointestinal: No problems Genitourinary: No problems Musculoskeletal: No problems Neurological: No problems Skin: No problems Vital Signs - Temperature Temperature: 97.0 F Temperature Source: Tympanic - Pulse Bilateral Brachial Pulse Rate: 96 Pulse Assessment Method: Automatic Cuff - Respirations Respiratory Rate: 16 Oxygen Delivery Method: Room Air - Blood Pressure Right Arm Blood Pressure: 123/59 Blood Pressure Mean: 80 Blood Pressure Source: Automatic Cuff Medical Screen Scoring (Pre) - Cervical Exam Dilation: Exam Deferred Effacement: Exam Deferred Membranes: Intact - Uterine Contractions Frequency: N/A Duration: N/A Intensity: N/A - Maternal Vital Signs Maternal Temperature: N/A Maternal Blood Pressure: N/A Signs of Preeclampsia: N/A Maternal Respirations: N/A - Maternal Trauma Maternal Trauma: N/A - Assessment - Baby A Baseline FHR: 145 Heart Rate - NICHD Category: Category I (Normal) = 0 NST: Reactive Position: N/A Station: N/A - Total Score - Baby A Total Score - Baby A: 0 - Total Score - Baby B Total Score - Baby B: 0 - Total Score - Baby C Total Score - Baby C: 0 - Level of Risk - Baby A Level of Risk - Baby A: Low (0-5) - Level of Risk - Baby B Level of Risk - Baby B: Low (0-5) - Level of Risk - Baby C Level of Risk - Baby C: Low (0-5) Physician Notification (Pre) - Physician Notified Physician Notified Date: 05/23/20 Physician Notified Time: 17:04 New Order Received: Yes - Notification Comment Comment: d/c home Disposition - Disposition OB Disposition: Discharge to home Discharge Date: 05/23/20 Discharge Time: 18:00 I agree with the RN Medical Screening Exam: Yes Risk & Benefit of care provided described in d/c instruction: Yes Diagnosis: FALL FROM OR OFF TOILET W STRIKE AGAINST OBJECT, INIT (Category 1 tracing noted. Following initial blood pressure all the blood pressures were normal. She denies any signs or symptoms of preeclampsia. No further pain prior to discharge)
== END 2020-05-23 18:00 | disposition home or self-care (01) ==
LOC: FBPOP 14:08
PROVIDERS: ATTEND Obstetrics & Gynecology
DX: O26.893 Other specified pregnancy related conditions, third trimester (principal); Z3A.37 37 weeks gestation of pregnancy; W18.12XA Fall from or off toilet with subsequent striking against object, initial encounter; Y92.012 Bathroom of single-family (private) house as the place of occurrence of the external cause
CPT/HCPCS: 59025; 99213

== ENCOUNTER 2020-12-16 16:08 | Emergency (ER) | payer OTHER ==
[2020-12-16 16:24] VITALS: BP 148/102; PULSE 104; RESP 16; TEMP 97.6
[2020-12-16] MEDS ORDERED: DIPH,PERTUS(ACELL)TETVAC-LF 0.5 ML VIAL IM ONE (16:47)
[2020-12-16] MEDS ORDERED: LIDOCAINE 1% INJ 10MG/ML (20 ML MDV) SQ ONE (16:47)
--- NOTE | 2020-12-16 17:19 | ED ---
General Adult HPI - General Chief complaint: Wound/Laceration Stated complaint: Rt Hand Lac Time Seen by Provider: 12/16/20 16:33 Source: patient Mode of arrival: ambulatory Limitations: no limitations - History of Present Illness Initial comments: 25-year-old female presents to the emergency room for laceration of the right hand. Patient was punching a wall when a loose nail caught the web between her first and second digit. Patient was only lightly punching the wall and did not have any pain in the hand other than the laceration. Patient is not up-to-date on tetanus.Patient has no other complaints at this time including shortness of breath, chest pain, abdominal pain, nausea or vomiting, headache, or visual changes. - Related Data Home Medications Medication Instructions Recorded Confirmed Pnv No.95/Ferrous Fum/Folic AC 1 tab PO DAILY 11/30/19 05/23/20 [ Multivitamin Tablet] Allergies Allergy/AdvReac Type Severity Reaction Status Date / Time amoxicillin [Amoxicillin] Allergy Dyspnea Verified 12/16/20 16:21 Review of Systems ROS Statement: Those systems with pertinent positive or pertinent negative responses have been documented in the HPI. ROS Other: All systems not noted in ROS Statement are negative. Past Medical History Additional Past Medical History / Comment(s): ADHD, CEREBRAL PALSY, ARTHRITIS. Pre-eclampsia. Obstetric history: She has had one previous vaginal delivery induced at 34 weeks and 5 days for preeclampsia. This is her second and she's had no care up to this point. She does have a appointment w [facility] physicians at [place] within the next week and a half. History of Any Multi-Drug Resistant Organisms: None Reported Past Surgical History: Section Past Anesthesia/Blood Transfusion Reactions: No Reported Reaction Past Psychological History: ADD/ADHD, Depression Smoking Status: Current every day smoker Past Alcohol Use History: None Reported Past Drug Use History: None Reported - Past Family History Mother Family Medical History: Hypertension General Exam Limitations: no limitations General appearance: alert Head exam: Present: atraumatic Eye exam: Present: normal appearance, PERRL, EOMI. Absent: scleral icterus ENT exam: Present: normal exam, mucous membranes moist Neck exam: Present: normal inspection, full ROM. Absent: tenderness Respiratory exam: Present: normal lung sounds bilaterally. Absent: respiratory distress, wheezes Cardiovascular Exam: Present: regular rate, normal rhythm, normal heart sounds GI/Abdominal exam: Present: soft, normal bowel sounds. Absent: distended, tenderness Extremities exam: Present: full ROM (Full range of motion of the right hand and all digits of the right hand.), normal capillary refill (Capillary refill less than 2 seconds in the right hand, radial pulse 2+.), other (No signs of trauma on the metacarpal heads. However patient does have a small 2 cm laceration in the finger web between the first and second digit.). Absent: tenderness (no tenderness on the right hand Or wrist) Neurological exam: Present: alert Course Vital Signs 12/16/20 16:22 Temperature 97.6 F Pulse Rate 104 H Respiratory 16 Rate Blood Pressure 148/102 O2 Sat by Pulse 100 Oximetry Procedures - Laceration Laceration #1 Consent Obtained: verbal consent Indication: laceration Site: upper extremity Size (cm): 2 Description: linear Depth: simple, single layer Anesthetic Used: lidocaine 1% Anesthesia Technique: local infiltration Amount (mls): 3 Pre-repair: wound explored, irrigated extensively, deep structures intact Type of Sutures: nylon Size of Sutures: 5-0 Number of Sutures: 4 Technique: simple, interrupted Patient Tolerated Procedure: well, no complications Medical Decision Making - Medical Decision Making Laceration repaired. No other injury. No need for x-ray. Patient will follow- up with her doctor in one to 2 days. She will return in 7-10 days for suture re moval. Disposition Clinical Impression: Laceration Disposition: HOME SELF-CARE Condition: Good Instructions (If sedation given, give patient instructions): Care For Your Stitches (ED), Laceration (ED) Additional Instructions: Please keep area clean. Monitor for signs of infection. Return in 7-10 days for suture removal. If you have any signs of infection or worsening symptoms return to the emergency room if symptoms still. Is patient prescribed a controlled substance at d/c from ED?: No Referrals: Kaye West MD [REFERRING] - 1-2 days Time of Disposition: 17:18
== END 2020-12-16 17:25 | disposition home or self-care (01) ==
LOC: EC 16:08
DX: S61.411A Laceration without foreign body of right hand, initial encounter (principal); F17.200 Nicotine dependence, unspecified, uncomplicated; Z23 Encounter for immunization; Z88.1 Allergy status to other antibiotic agents; W23.0XXA Caught, crushed, jammed, or pinched between moving objects, initial encounter
CPT/HCPCS: 90715; 99282; 12031; 90471; J2001

== ENCOUNTER 2020-12-23 10:29 | Emergency (ER) | payer OTHER ==
[2020-12-23 10:44] VITALS: BP 108/75; PULSE 86; RESP 18; TEMP 98
--- NOTE | 2020-12-23 11:17 | XR ---
EXAMINATION TYPE: XR foot limited LT DATE OF EXAM: 12/23/2020 COMPARISON: None HISTORY: Foreign body TECHNIQUE: 2 view left foot FINDINGS: There is varus deformity of the distal third fourth and fifth digits. Joint spaces appear p reserved. No acute fracture or dislocation is evident. No radiopaque foreign bodies are evident. Tiny plantar calcaneal heel spur is present. Soft tissues a ppear normal. IMPRESSION: 1. No radiopaque foreign body identified. 2. Degenerative changes. 3. Plantar calcaneal heel spur
--- NOTE | 2020-12-23 11:36 | ED ---
General Adult HPI - General Chief complaint: Extremity Injury, Lower Stated complaint: Glass in lft foot Time Seen by Provider: 12/23/20 11:13 Source: patient, RN notes reviewed Mode of arrival: ambulatory Limitations: no limitations - History of Present Illness Initial comments: Patient is a 25-year-old female that presents to emergency department to have sutures removed from the right thumb and index finger interdigit space and have a piece of glass removed from the bottom of her left foot. She notes that she stepped on some glass several days ago and has been increasingly more painful as the day goes on. She denied any other issues or complaints at this time. She denied any chest pain shortness of breath headache nausea vomiting diarrhea c onstipation fever fatigue chills. - Related Data Home Medications Medication Instructions Recorded Confirmed Pnv No.95/Ferrous Fum/Folic AC 1 tab PO DAILY 11/30/19 05/23/20 [ Multivitamin Tablet] Allergies Allergy/AdvReac Type Severity Reaction Status Date / Time amoxicillin [Amoxicillin] Allergy Dyspnea Verified 12/23/20 10:43 Review of Systems ROS Statement: Those systems with pertinent positive or pertinent negative responses have been documented in the HPI. ROS Other: All systems not noted in ROS Statement are negative. Past Medical History Additional Past Medical History / Comment(s): ADHD, CEREBRAL PALSY, ARTHRITIS. Pre-eclampsia. Obstetric history: She has had one previous vaginal delivery induced at 34 weeks and 5 days for preeclampsia. This is her second and she's had no care up to this point. She does have a appointment with physicians at [place] within the next week and a half. History of Any Multi-Drug Resistant Organisms: None Reported Past Surgical History: Section Past Anesthesia/Blood Transfusion Reactions: No Reported Reaction Past Psychological History: ADD/ADHD, Depression Smoking Status: Current every day smoker Past Alcohol Use History: None Reported Past Drug Use History: None Reported - Past Family History Mother Family Medical History: Hypertension General Exam Limitations: no limitations General appearance: alert, in no apparent distress Head exam: Present: atraumatic, normocephalic, normal inspection Eye exam: Present: normal appearance, PERRL, EOMI. Absent: scleral icterus, conjunctival injection, periorbital swelling Neck exam: Present: normal inspection Respiratory exam: Present: normal lung sounds bilaterally. Absent: respiratory distress, wheezes, rales, rhonchi, stridor Cardiovascular Exam: Present: regular rate, normal rhythm, normal heart sounds. Absent: systolic murmur, diastolic murmur, rubs, gallop, clicks GI/Abdominal exam: Present: soft, normal bowel sounds. Absent: distended, tenderness, guarding, rebound, rigid Extremities exam: Present: normal inspection, full ROM, normal capillary refill. Absent: tenderness, pedal edema, joint swelling, calf tenderness Left Foot/Toe exam: Present: normal inspection, full ROM, foreign body (Plantar aspect in the ball of the foot) Neurological exam: Present: alert, oriented X3 Psychiatric exam: Present: normal affect, normal mood Skin exam: Present: warm, dry, intact, normal color. Absent: rash Course Vital Signs 12/23/20 10:40 Temperature 98.0 F Pulse Rate 86 Respiratory 18 Rate Blood Pressure 108/75 O2 Sat by Pulse 97 Oximetry Procedures - Forgein Body Removal Soft Tissue Consent Obtained: verbal consent Site: foot Foreign Body Suspected: Glass Foreign Body Removed: yes Foreign Body Removal Technique: Instrumentation Patient Tolerated Procedure: well, no complications Medical Decision Making - Medical Decision Making 25-year-old female resenting to have sutures removed from the right thumb and index interdigit space and a piece of glass removed from the left foot area 4 sutures were removed without complication. Small piece of glass removed from plantar aspect of left foot with no complications. Case discussed with Dr. Perez, patient can discharge home with follow-up to primary care. - Radiology Data Radiology results: report reviewed, image reviewed Left foot x-ray: No radiopaque foreign body identified. Degenerative changes. Plantar calcaneal heel spur. Disposition Clinical Impression: Visit for suture removal, Foreign body in foot, left Disposition: HOME SELF-CARE Condition: Stable Instructions (If sedation given, give patient instructions): Soft Tissue Foreign Body (ED) Additional Instructions: Please return to the Emergency Department if symptoms worsen or any other concerns. Follow-up with primary care as needed. Keep areas clean and dry as possible. Take Tylenol and/or Motrin as needed. Wear shoes to avoid any future plantar surface foreign bodies. Is patient prescribed a controlled substance at d/c from ED?: No Referrals: None,Stated [Primary Care Provider] - 1-2 days Time of Disposition: 11:36
== END 2020-12-23 11:49 | disposition home or self-care (01) ==
LOC: EC 10:29
DX: S90.852A Superficial foreign body, left foot, initial encounter (principal); S61.011D Laceration without foreign body of right thumb without damage to nail, subsequent encounter; S61.218D Laceration without foreign body of other finger without damage to nail, subsequent encounter; F17.200 Nicotine dependence, unspecified, uncomplicated; Z48.02 Encounter for removal of sutures; Z88.0 Allergy status to penicillin; W25.XXXA Contact with sharp glass, initial encounter
CPT/HCPCS: 99283

== ENCOUNTER → 2021-02-11 | Outpatient (CLI) | payer OTHER ==
--- NOTE | 2021-02-11 12:37 | XR ---
EXAMINATION TYPE: XR cervical spine comp DATE OF EXAM: 02/11/2021 COMPARISON: None HISTORY: Pain TECHNIQUE: 5 view cervical spine FINDINGS: Slight kyphosis is present to the cervical spine. Prevertebral space is normal. Posterior s lilian lamellar line is intact. The odontoid appears normal. Foramen are patent. Vertebral body height s are preserved. Disc heights appear preserved. IMPRESSION: 1. Mild kyphosis mid cervical spine. 2. No acute abnormality otherwise evident.
--- NOTE | 2021-02-11 16:03 | XR ---
EXAMINATION TYPE: XR thoracic spine 2V DATE OF EXAM: 02/11/2021 COMPARISON: None HISTORY: Back pain TECHNIQUE: 3 view thoracic spine FINDINGS: There are 12 thoracic type vertebral bodies. Pedicles are intact. Disc heights are preserve d. Vertebral body heights are preserved. Alignment appears normal. Mild spondylosis is present. IMPRESSION: 1. Mild spondylosis thoracic spine. 2. No acute osseous abnormality
--- NOTE | 2021-02-11 16:04 | XR ---
EXAMINATION TYPE: XR lumbosacral spine min 4V DATE OF EXAM: 02/11/2021 COMPARISON: None HISTORY: Back pain TECHNIQUE: 5 view lumbar spine FINDINGS: There are 5 lumbar-type vertebral bodies. The pedicles are intact. Disc heights are preserv ed. Vertebral body heights are preserved. No spondylolytic defects are evident. IMPRESSION: 1. No acute osseous abnormality lumbar spine
== END | disposition home or self-care (01) ==
LOC: RADXRMAIN 10:39
PROVIDERS: ATTEND Physician Assistant
DX: M47.814 Spondylosis without myelopathy or radiculopathy, thoracic region (principal); M40.292 Other kyphosis, cervical region
CPT/HCPCS: 72050; 72070; 72110

== ENCOUNTER 2023-12-30 10:26 | Emergency (ER) | payer OTHER ==
--- NOTE | 2023-12-30 11:39 | ED ---
Back Pain HPI - General Chief Complaint: Back Pain/Injury Stated Complaint: back pain Time Seen by Provider: 12/30/23 10:47 Source: patient, RN notes reviewed Mode of arrival: ambulatory Limitations: no limitations - History of Present Illness Initial Comments: This is a 28-year-old female who presents to the emergency department for back pain. States that it started yesterday while she was playing with her daughter. She has thrown her back out before and states that it feels the same. Pain is in the bilateral lower back with some radiation down her legs. Denies any loss of bowel/bladder control or saddle anesthesia. She tried taking one of her mother's muscle relaxants without much relief. Additionally, states that she was bitten by a tick a couple weeks ago and is unsure how long it was there. She has not noticed a rash but inquired about treatment. MD Complaint: back pain - Related Data Home Medications Medication Instructions Recorded Confirmed Pnv No.95/Ferrous Fum/Folic AC 1 tab PO DAILY 11/30/19 05/23/20 [ Multivitamin Tablet] Previous Rx's Medication Instructions Recorded Sulfamethox-Tmp 800-160Mg [Bactrim 1 each PO Q12HR 3 Days #6 tab 09/20/21 Ds] Cyclobenzaprine [Flexeril] 10 mg PO TID PRN #30 tab 12/30/23 Doxycycline Hyclate 100 mg PO BID 10 Days #20 capsule 12/30/23 predniSONE 50 mg PO DAILY 5 Days #5 tab 12/30/23 Allergies Allergy/AdvReac Type Severity Reaction Status Date / Time amoxicillin [Amoxicillin] Allergy Dyspnea Verified 12/30/23 10:32 Review of Systems ROS Statement: Those systems with pertinent positive or pertinent negative responses have been documented in the HPI. ROS Other: All systems not noted in ROS Statement are negative. Past Medical History Additional Past Medical History / Comment(s): ADHD, CEREBRAL PALSY, ARTHRITIS. Pre-eclampsia. Obstetric history: She has had one previous vaginal delivery induced at 34 weeks and 5 days for preeclampsia. This is her second and she's had no care up to this point. She does have a appointment with physicians at [place] within the next week and a half, newly diagnosed hep C History of Any Multi-Drug Resistant Organisms: None Reported Past Surgical History: Section Past Anesthesia/Blood Transfusion Reactions: No Reported Reaction Past Psychological History: ADD/ADHD, Depression Smoking Status: Current every day smoker Past Alcohol Use History: None Reported Past Drug Use History: None Reported - Past Family History Mother Family Medical History: Hypertension General Exam Limitations: no limitations General appearance: alert, in no apparent distress Head exam: Present: atraumatic, normocephalic, normal inspection Respiratory exam: Present: normal lung sounds bilaterally. Absent: respiratory distress, wheezes, rales, rhonchi, stridor Cardiovascular Exam: Present: regular rate, normal rhythm, normal heart sounds. Absent: systolic murmur, diastolic murmur, rubs, gallop, clicks Back exam: Present: other (Left and right lower back) Neurological exam: Present: alert, oriented X3, CN II-XII intact Psychiatric exam: Present: normal affect, normal mood Skin exam: Present: warm, dry, intact, normal color. Absent: rash Course Vital Signs 12/30/23 12/30/23 12/30/23 10:28 12:55 13:36 Temperature 98.2 F 98.1 F 98 F Pulse Rate 95 69 71 Respiratory 18 16 16 Rate Blood Pressure 116/77 129/84 121/82 O2 Sat by Pulse 95 100 100 Oximetry Medical Decision Making - Medical Decision Making This is a 28-year-old female who presents to the emergency department for back pain. Was pt. sent in by a medical professional or institution? @ -No Did you speak to anyone other than the patient for history? @ -No Did you review nursing and triage notes? @ -Yes, and I agree, it is accurate with regards to the patient's symptoms. Were old charts reviewed? @ -No Differential Diagnosis? @ -Differential Back Pain: Strain, zoster, cauda equina syndrome, epidural abscess, vertebral osteomyelitis, discitis, fracture, subluxation, disc herniation, DJD, spinal stenosis, dissection, AAA, pancreatitis, peptic ulcer disease, pyelonephritis, kidney stone, this is not meant to be an all-inclusive list. EKG interpreted by me (3pts min.)? @ -Not obtained X-rays interpreted by me (1pt min.)? @ -Not obtained CT interpreted by me (1pt min.)? @ -Not obtained U/S interpreted by me (1pt. min.)? @ -Not obtained What testing was considered but not performed? (CT, X-rays, U/S, labs)? Why? @ -None What meds were considered but not given? Why? @ -None Did you discuss the management of the patient with other professionals? @ -No Did you reconcile home meds? @ -No Was smoking cessation discussed for >3mins.? @ -I discussed smoking cessation for greater than 3 minutes. The risk of smoking were discussed with the patient including but not limited to risks of cancer, stroke, coronary artery disease and COPD. Also discussed with patient were multiple methods of quitting smoking. Lastly we discussed the financial cost of smoking. Was critical care preformed (if so, how long)? @ -No Were there social determinants of health that impacted care today? How? (Ho melessness, low income, unemployed, alcoholism, drug addiction, transportation, low edu. Level, literacy, decrease access to med. care, longterm, rehab)? @ -No Was there de-escalation of care discussed even if they declined? (Discuss DNR or withdrawal of care, Hospice)? @ -No What co-morbidities impacted this encounter? (DM, HTN, Smoking, COPD, CAD, Cancer, CVA, Hep., AIDS, mental health diagnosis, sleep apnea, morbid obesity)? @ -Smoking, arthritis, morbid obesity Was patient admitted / discharged? @ -Discharged. Given that this has happened before, she had no red flag signs or symptoms, and there was no injury, no imaging was obtained. Symptoms were well-controlled in the emergency department. Prescription for prednisone and Flexeril provided for lumbar radiculopathy. Given her concern about the tick being attached for several days, I was willing to give her a prescription for doxycycline. Advised that she otherwise follow-up with her PCP for reevaluation. Patient discharged home in stable condition. Case discussed with ED attending Dr. Michael. Return precautions reviewed in depth, the patient is instructed to return to the emergency department with any new, worsening, or concerning symptoms. Patient verbalized understanding. Undiagnosed new problem with uncertain prognosis? @ -None Drug Therapy requiring intensive monitoring for toxicity (Heparin, Nitro, Insulin, Cardizem)? @ -None Were any procedures done? @ -None Diagnosis/symptom? @ -Lumbar radiculopathy Acute, or Chronic, or Acute on Chronic? @ -Acute Uncomplicated (without systemic symptoms) or Complicated (systemic symptoms)? @ -Uncomplicated Side effects of treatment? @ -None Exacerbation, Progression, or Severe Exacerbation] @ -Not applicable Poses a threat to life or bodily function? @ -No Disposition Clinical Impression: Strain of lumbar region, Lumbar radiculopathy, Tick bite Disposition: HOME SELF-CARE Instructions (If sedation given, give patient instructions): Acute Low Back P ain (ED), Lumbar Radiculopathy (ED) Additional Instructions: Return to the emergency department with any new, worsening, or concerning symptoms. Take the antibiotic as prescribed for 10 days. Take the prednisone daily for 5 days. Take the Flexeril up to 3 times daily, however be aware that this may make you drowsy. Follow up with your primary care provider in 1-2 days . Prescriptions: Doxycycline Hyclate 100 mg PO BID 10 Days #20 capsule Cyclobenzaprine [Flexeril] 10 mg PO TID PRN #30 tab PRN Reason: Pain predniSONE 50 mg PO DAILY 5 Days #5 tab Is patient prescribed a controlled substance at d/c from ED?: No Referrals: None,Stated [Primary Care Provider] - 1-2 days Time of Disposition: 12:35
[2023-12-30] MEDS: KETOROLAC 15 MG/ML 1 ML VIAL IVP STA (11:42)
[2023-12-30] MEDS: MORPHINE SULFATE 4 MG/ML SYRINGE IVP STA (11:45)
[2023-12-30] MEDS: ORPHENADRINE 30 MG/ML 2 ML VIAL IVP STA (11:50)
[2023-12-30] MEDS: DEXAMETHASONE SOD PHOSPHATE 10 MG/ML 1 ML VIAL IVP STA (11:54)
[2023-12-30] MEDS: HYDROmorphone 0.5 MG/0.5 ML SYRINGE IVP STA (13:01)
[2023-12-30 13:02] VITALS: RESP 16
[2023-12-30] MEDS: ACET/COD 300 MG/30 MG STARTER PACK 6 TAB BTL PO STA (13:30)
[2023-12-30 13:38] VITALS: BP 121/82; PULSE 71; TEMP 98
== END 2023-12-30 13:36 | disposition home or self-care (01) ==
LOC: EC 10:26
DX: S33.5XXA Sprain of ligaments of lumbar spine, initial encounter (principal); M54.16 Radiculopathy, lumbar region; F17.200 Nicotine dependence, unspecified, uncomplicated; Z88.1 Allergy status to other antibiotic agents; W57.XXXA Bitten or stung by nonvenomous insect and other nonvenomous arthropods, initial encounter
CPT/HCPCS: 99283; 96374; 96375 ×4; 99406; J2270; J1100; J2360; J1885; J1170

== ENCOUNTER 2024-01-22 13:05 | Emergency (ER) | payer OTHER | END 2024-01-22 17:17 | disposition home or self-care (01) | LOC: EC 13:05 | DX: R07.89 Other chest pain (principal) | CPT/HCPCS: 71046; 93005; 99285 ==

== ENCOUNTER 2024-01-23 19:41 | Emergency (ER) | payer OTHER ==
[2024-01-23] MEDS ORDERED: ALPRAZolam 0.5 MG TAB ONE (21:45)
== END 2024-01-23 21:46 | disposition home or self-care (01) ==
LOC: EC 19:41
DX: F41.9 Anxiety disorder, unspecified (principal)
CPT/HCPCS: 93005; 99283

== ENCOUNTER 2024-06-01 18:24 | Emergency (ER) | payer OTHER ==
[2024-06-01 18:34] VITALS: RESP 16; TEMP 98.8
[2024-06-01] MEDS: ORPHENADRINE 30 MG/ML 2 ML VIAL IM STA (19:46)
[2024-06-01] MEDS: DEXAMETHASONE SOD PHOSPHATE 10 MG/ML 1 ML VIAL IM STA (19:46)
[2024-06-01] MEDS: LIDOCAINE 4% PATCH TOPICAL ONE (19:47)
[2024-06-01] MEDS: KETOROLAC 15 MG/ML 1 ML VIAL IM STA (19:47)
--- NOTE | 2024-06-01 20:10 | ED ---
Back Pain HPI - General Chief Complaint: Back Pain/Injury Stated Complaint: Fall-Back pain Time Seen by Provider: 06/01/24 19:23 Source: patient Limitations: no limitations - History of Present Illness Initial Comments: 28-year-old female presented with chief complaint of back pain. Patient has history of lower back pain. 3 days ago she slipped on ice and fell and this caused a flareup of her chronic back pain. She does have pain that radiates down both legs. She has no loss of bowel or bladder control or saddle paresthesia. No fevers or chills. No nausea or vomiting. No urinary symptoms. No weakness numbness or tingling - Related Data Home Medications Medication Instructions Recorded Confirmed Pnv No.95/Ferrous Fum/Folic AC 1 tab PO DAILY 11/30/19 05/23/20 [ Multivitamin Tablet] Previous Rx's Medication Instructions Recorded Sulfamethox-Tmp 800-160Mg [Bactrim 1 each PO Q12HR 3 Days #6 tab 09/20/21 Ds] Cyclobenzaprine [Flexeril] 10 mg PO TID PRN #30 tab 12/30/23 Doxycycline Hyclate 100 mg PO BID 10 Days #20 capsule 12/30/23 predniSONE 50 mg PO DAILY 5 Days #5 tab 12/30/23 Cyclobenzaprine [Flexeril] 10 mg PO TID PRN #15 tab 06/01/24 Lidocaine 5% Patch [Lidoderm 5% 1 patch TOPICAL DAILY PRN #30 patch 06/01/24 Patch] Allergies Allergy/AdvReac Type Severity Reaction Status Date / Time amoxicillin [Amoxicillin] Allergy Dyspnea Verified 12/30/23 10:32 Review of Systems ROS Statement: Those systems with pertinent positive or pertinent negative responses have been documented in the HPI. ROS Other: All systems not noted in ROS Statement are negative. Past Medical History Additional Past Medical History / Comment(s): ADHD, CEREBRAL PALSY, ARTHRITIS. Pre-eclampsia. Obstetric history: She has had one previous vaginal delivery induced at 34 weeks and 5 days for preeclampsia. This is her second and she's had no care up to this point. She does have a appointment with physicians at [place] within the next week and a half, newly diagnosed hep C History of Any Multi-Drug Resistant Organisms: None Reported Past Surgical History: Section Past Anesthesia/Blood Transfusion Reactions: No Reported Reaction Past Psychological History: ADD/ADHD, Depression Smoking Status: Current every day smoker Past Alcohol Use History: None Reported Past Drug Use History: None Reported - Past Family History Mother Family Medical History: Hypertension General Exam Limitations: no limitations General appearance: alert, in no apparent distress Head exam: Present: atraumatic, normocephalic, normal inspection Eye exam: Present: normal appearance, EOMI Neck exam: Present: normal inspection. Absent: meningismus Respiratory exam: Absent: respiratory distress Cardiovascular Exam: Present: regular rate. Absent: clicks Extremities exam: Present: normal inspection, full ROM Back exam: Present: normal inspection, paraspinal tenderness Neurological exam: Present: alert, oriented X3 Psychiatric exam: Present: normal affect, normal mood Skin exam: Present: warm, dry Course Vital Signs 06/01/24 06/01/24 18:32 20:16 Temperature 98.8 F Pulse Rate 85 82 Respiratory 16 16 Rate Blood Pressure 184/104 120/90 O2 Sat by Pulse 98 98 Oximetry Medical Decision Making - Medical Decision Making Was pt. sent in by a medical professional or institution (, PA, [employer], urgent care, hospital, or prison...) When possible be specific @ -No Did you speak to anyone other than the patient for history (EMS, parent, family, police, friend...)? What history was obtained from this source @ -No Did you review nursing and triage notes (agree or disagree)? Why? @ -I reviewed and agree with nursing and triage notes Were old charts reviewed (outside hosp., previous admission, EMS record, old EKG, old radiological studies, urgent care reports/EKG's, prison records)? Report findings @ -No old charts were reviewed Differential Diagnosis (chest pain, altered mental status, abdominal pain women, abdominal pain men, vaginal bleeding, weakness, fever, dyspnea, syncope, headache, dizziness, GI bleed, back pain, seizure, CVA, palpatations, mental health, musculoskeletal)? @ - MDM Differential Back Pain: Strain, zoster, cauda equina syndrome, epidural abscess, vertebral osteomyelitis, discitis, fracture, subluxation, disc herniation, DJD, spinal stenosis, dissection, AAA, pancreatitis, peptic ulcer disease, pyelonephritis, kidney stone this is not meant to be an all-inclusive list. EKG interpreted by me (3pts min.). @ -As above X-rays interpreted by me (1pt min.). @ -None done CT interpreted by me (1pt min.). @ -None done U/S interpreted by me (1pt. min.). @ -None done What testing was considered but not performed or refused? (CT, X-rays, U/S, labs)? Why? @ -None What meds were considered but not given or refused? Why? @ -None Did you discuss the management of the patient with other professionals (professionals i.e. , PA, [employer], lab, RT, psych nurse, social media designer, occupational therapist rehab manager, teacher, community service officer coordinator, senior case manager)? Give summary @ -No Was smoking cessation discussed for >3mins.? @ -No Was critical care preformed (if so, how long)? @ -No Were there social determinants of health that impacted care today? How? (Homelessness, low income, unemployed, alcoholism, drug addiction, transportati on, low edu. Level, literacy, decrease access to med. care, custodial, rehab)? @ -No Was there de-escalation of care discussed even if they declined (Discuss DNR or withdrawal of care, Hospice)? DNR status @ -No What co-morbidities impacted this encounter? (DM, HTN, Smoking, COPD, CAD, Cancer, CVA, ARF, Chemo, Hep., AIDS, mental health diagnosis, sleep apnea, morbid obesity)? @ -None Was patient admitted / discharged? Hospital course, mention meds given and route, prescriptions, significant lab abnormalities, going to OR and other pertinent info. @ -28-year-old female presenting with chief complaint of lower back pain. History of lower back pain which was exacerbated by a slip on the ice 3 days ago. This feels like back pain that she has had before. No red flag symptoms. She is treated with pain medication and on reassessment she reports significant improvement in her symptoms. Discharge. Follow-up with PCP. Report back to ER with any new or worsening symptoms. Discussed return parameters and answered all questions. Patient conveyed verbal understanding and agreed to the plan. I discussed this case in detail with my attending Dr. Dove Undiagnosed new problem with uncertain prognosis? @ -No Drug Therapy requiring intensive monitoring for toxicity (Heparin, Nitro, Insulin, Cardizem)? @ -No Were any procedures done? @ -No Diagnosis/symptom? @ -Low back pain Acute, or Chronic, or Acute on Chronic? @ -Acute on chronic Uncomplicated (without systemic symptoms) or Complicated (systemic symptoms)? @ -Uncomplicated Side effects of treatment? @ -No Exacerbation, Progression, or Severe Exacerbation? @ -No Poses a threat to life or bodily function? How? (Chest pain, [place], [place], pneumonia, PE, COPD, DKA, ARF, appy, cholecystitis, CVA, Diverticulitis, Homicidal, Suicid al, threat to staff... and all critical care pts) @ -No Disposition Clinical Impression: Mechanical back pain Disposition: HOME SELF-CARE Condition: Good Instructions (If sedation given, give patient instructions): Acute Low Back Pain (ED) Additional Instructions: Follow-up with PCP. Report back to ER with any new or worsening symptoms. Take Motrin and Tylenol as needed for pain control. Do not take cyclobenzaprine before driving or operating heavy machinery as it may cause drowsiness. Prescriptions: Cyclobenzaprine [Flexeril] 10 mg PO TID PRN #15 tab PRN Reason: Spasms Lidocaine 5% Patch [Lidoderm 5% Patch] 1 patch TOPICAL DAILY PRN #30 patch PRN Reason: Pain Is patient prescribed a controlled substance at d/c from ED?: No Referrals: None,Stated [Primary Care Provider] - 1-2 days [facility] [Provider Group] - 1-2 days Time of Disposition: 20:08
[2024-06-01 20:18] VITALS: BP 120/90; PULSE 82
== END 2024-06-01 20:16 | disposition home or self-care (01) ==
LOC: EC 18:24
DX: M54.89 Other dorsalgia (principal); F17.200 Nicotine dependence, unspecified, uncomplicated; Z88.0 Allergy status to penicillin; W00.0XXA Fall on same level due to ice and snow, initial encounter
CPT/HCPCS: 99283; 96372; J1100; J2360; J1885

== ENCOUNTER 2024-06-26 14:05 | Emergency (ER) | payer OTHER ==
[2024-06-26 14:29] VITALS: RESP 20
--- NOTE | 2024-06-26 15:41 | ED ---
ENT HPI - General Chief complaint: Dental/Oral Stated complaint: Dental issue Time Seen by Provider: 06/26/24 15:25 Source: patient, RN notes reviewed, old records reviewed Mode of arrival: ambulatory Limitations: no limitations - History of Present Illness Initial comments: This is a 28 female to the ER for evaluation of tooth pain severe tooth pain wi th recent tooth procedure. Patient was on antibiotics for a few days and has since developed increasing swelling and pain of the tooth and face. No fevers able to eat and drink appropriately. No other complaints MD complaint: tooth pain -: days(s) Location: tooth # Severity: severe Severity scale (1-10): 8 Quality: stabbing Consistency: constant Improves with: none Worsens with: none Context- Dental: history of dental caries, poor dental care, tooth knocked out Associated Symptoms: other - Related Data Home Medications Medication Instructions Recorded Confirmed Pnv No.95/Ferrous Fum/Folic AC 1 tab PO DAILY 11/30/19 05/23/20 [ Multivitamin Tablet] Previous Rx's Medication Instructions Recorded Sulfamethox-Tmp 800-160Mg [Bactrim 1 each PO Q12HR 3 Days #6 tab 09/20/21 Ds] Cyclobenzaprine [Flexeril] 10 mg PO TID PRN #30 tab 12/30/23 Doxycycline Hyclate 100 mg PO BID 10 Days #20 capsule 12/30/23 predniSONE 50 mg PO DAILY 5 Days #5 tab 12/30/23 Cyclobenzaprine [Flexeril] 10 mg PO TID PRN #15 tab 06/01/24 Lidocaine 5% Patch [Lidoderm 5% 1 patch TOPICAL DAILY PRN #30 patch 06/01/24 Patch] Allergies Allergy/AdvReac Type Severity Reaction Status Date / Time amoxicillin [Amoxicillin] Allergy Dyspnea Verified 06/26/24 14:29 Review of Systems ROS Statement: Those systems with pertinent positive or pertinent negative responses have been documented in the HPI. ROS Other: All systems not noted in ROS Statement are negative. Past Medical History Additional Past Medical History / Comment(s): ADHD, CEREBRAL PALSY, ARTHRITIS. Pre-eclampsia. Obstetric history: She has had one previous vaginal delivery induced at 34 weeks and 5 days for preeclampsia. This is her second and she's had no care up to this point. She does have a appointment with physicians at [place] within the next week and a half, newly diagnosed hep C History of Any Multi-Drug Resistant Organisms: None Reported Past Surgical History: Section Past Anesthesia/Blood Transfusion Reactions: No Reported Reaction Past Psychological History: ADD/ADHD, Depression Smoking Status: Current every day smoker Past Alcohol Use History: None Reported Past Drug Use History: None Reported - Past Family History Mother Family Medical History: Hypertension General Exam Limitations: no limitations General appearance: alert, in no apparent distress Head exam: Present: atraumatic, normocephalic, normal inspection Eye exam: Present: normal appearance, PERRL, EOMI. Absent: scleral icterus, conjunctival injection, periorbital swelling ENT exam: Present: normal exam, mucous membranes moist Neck exam: Present: normal inspection. Absent: tenderness, meningismus, lymphadenopathy Respiratory exam: Present: normal lung sounds bilaterally. Absent: respiratory distress, wheezes, rales, rhonchi, stridor Cardiovascular Exam: Present: regular rate, normal rhythm, normal heart sounds. Absent: systolic murmur, diastolic murmur, rubs, gallop, clicks GI/Abdominal exam: Present: soft, normal bowel sounds. Absent: distended, tenderness, guarding, rebound, rigid Extremities exam: Present: normal inspection, full ROM, normal capillary refill. Absent: tenderness, pedal edema, joint swelling, calf tenderness Back exam: Present: normal inspection Neurological exam: Present: alert, oriented X3, CN II-XII intact Psychiatric exam: Present: normal affect, normal mood Skin exam: Present: warm, dry, intact, normal color. Absent: rash Course Vital Signs 06/26/24 14:26 Temperature 98.8 F Pulse Rate 97 Respiratory 20 Rate Blood Pressure 138/94 O2 Sat by Pulse 96 Oximetry - Reevaluation(s) Reevaluation #1: 06/26/24 15:40 Medical records reviewed Reevaluation #2: 06/26/24 15:40 Symptoms unchanged Reevaluation #3: 06/26/24 15:40 Patient informed of results questions answered Reevaluation #4: Was pt. sent in by a medical professional or institution (, PA, HEAT PLANT SPECIALIST, urgent care, hospital, or shelter...) When possible be specific @ -no Did you speak to anyone other than the patient for history (EMS, parent, family, police, friend...)? What history was obtained from this source @ -no Did you review nursing and triage notes (agree or disagree)? Why? @ -agree Are old charts reviewed (outside hosp., previous admission, EMS record, old EKG, old radiological studies, urgent care reports/EKG's, shelter records)? Report findings @ -yes Differential Diagnosis (chest pain, altered mental status, abdominal pain women, abdominal pain men, vaginal bleeding, weakness, fever, dyspnea, syncope, headache, dizziness, GI bleed, back pain, seizure, CVA, palpatations, mental health, musculoskeletal)? @ -prior EKG interpreted by me (3pts min.). @ -yes X-rays interpreted by me (1pt min.). @ -yes negative for acute disease CT interpreted by me (1pt min.). @ -no U/S interpreted by me (1pt. min.). @ -no What testing was considered but not performed or refused? (CT, X-rays, U/S, labs)? Why? @ -none What meds were considered but not given or refused? Why? @ -none Did you discuss the management of the patient with other professionals (professionals i.e. , PA, HEAT PLANT SPECIALIST, lab, RT, psych nurse, social services counselor, base filler, teacher, asset protection officer, pillowcase folder)? Give summary @ -no Was smoking cessation discussed for >3mins.? @ -no Was critical care preformed (if so, how long)? @ -no Were there social determinants of health that impacted care today? How? (Homelessness, low income, unemployed, alcoholism, drug addiction, transportation, low edu. Level, literacy, decrease access to med. care, [facility], rehab)? @ -none Was there de-escalation of care discussed even if they declined (Discuss DNR or withdrawal of care, Hospice)? DNR status @ -no What co-morbidities impacted this encounter? (DM, HTN, Smoking, COPD, CAD, Cancer, CVA, ARF, Chemo, Hep., AIDS, mental health diagnosis, sleep apnea, morbid obesity)? @ -none Was patient admitted / discharged? Hospital course, mention meds given and route, prescriptions, significant lab abnormalities, going to OR and other pertinent info. @ - Undiagnosed new problem with uncertain prognosis? @ -no Drug Therapy requiring intensive monitoring for toxicity (Heparin, Nitro, Insulin, Cardizem)? @ -no Were any procedures done? @ -no Diagnosis/symptom? @ - Acute, or Chronic, or Acute on Chronic? @ -Acute Uncomplicated (without systemic symptoms) or Complicated (systemic symptoms)? @ -Complicated Side effects of treatment? @ -no Exacerbation, Progression, or Severe Exacerbation? @ -exacerbation Poses a threat to life or bodily function? How? (Chest pain, [place], [place], pneumonia, PE, COPD, DKA, ARF, appy, cholecystitis, CVA, Diverticulitis, Homicidal, Suicidal, threat to staff... and all critical care pts) @ -yes Medical Decision Making - Medical Decision Making 28 female positive dental abscess with dental caries facial edema, patient given antibiotics here and discharged home Disposition Clinical Impression: Dental caries, Toothache, Dental abscess Disposition: HOME SELF-CARE Condition: Good Instructions (If sedation given, give patient instructions): Dental Abscess (ED), Toothache (ED) Is patient prescribed a controlled substance at d/c from ED?: No Referrals: [facility] [NON-STAFF] - (Contact office to become established with a primary care provider. ) None,Stated [Primary Care Provider] - 1-2 days Forms: Area PCPs Time of Disposition: 15:40
[2024-06-26] MEDS: IBUPROFEN 600 MG STARTER PACK 4 TAB BTL PO STA (16:05)
[2024-06-26] MEDS: ACET/COD 300 MG/30 MG STARTER PACK 6 TAB BTL PO STA (16:06)
[2024-06-26] MEDS: CLINDAMYCIN 150 MG CAP PO STA (16:06)
[2024-06-26] MEDS: Acetaminophen-Codeine 300-30mg TAB PO STA (16:06)
[2024-06-26] MEDS: DEXAMETHASONE SOD PHOSPHATE 10 MG/ML 1 ML VIAL IM STA (16:07)
[2024-06-26] MEDS: IBUPROFEN 800 MG TAB PO STA (16:07)
[2024-06-26 16:58] VITALS: BP 131/87; PULSE 91; TEMP 98.7
== END 2024-06-26 16:59 | disposition home or self-care (01) ==
LOC: EC 14:05
DX: K02.9 Dental caries, unspecified (principal); K04.7 Periapical abscess without sinus; F17.200 Nicotine dependence, unspecified, uncomplicated; Z88.0 Allergy status to penicillin
CPT/HCPCS: 99283; 96372; J1100

== ENCOUNTER 2024-08-06 12:41 | Emergency (ER) | payer OTHER ==
--- NOTE | 2024-08-06 13:23 | ED ---
Extremity Problem HPI - General Chief complaint: Extremity Problem,Nontraumatic Stated complaint: neck/shoulder pain, right arm pain Time Seen by Provider: 08/06/24 13:20 Source: patient, RN notes reviewed Mode of arrival: ambulatory Limitations: no limitations - History of Present Illness Initial comments: 28-year-old female presenting for right shoulder pain x 2 weeks. Reports for the past 2 weeks she has had neck and right shoulder stiffness worse with movement. Denies injury or trauma. Reports over the past 2 days she has also had a intermittent, sharp, shooting pain that goes down the right upper extremity. Denies numbness or tingling in the upper extremities. Denies chest pain or shortness of breath. Reports that ibuprofen improves the pain. - Related Data Home Medications Medication Instructions Recorded Confirmed Pnv No.95/Ferrous Fum/Folic AC 1 tab PO DAILY 11/30/19 05/23/20 [ Multivitamin Tablet] Previous Rx's Medication Instructions Recorded Sulfamethox-Tmp 800-160Mg [Bactrim 1 each PO Q12HR 3 Days #6 tab 09/20/21 Ds] Cyclobenzaprine [Flexeril] 10 mg PO TID PRN #30 tab 12/30/23 Doxycycline Hyclate 100 mg PO BID 10 Days #20 capsule 12/30/23 predniSONE 50 mg PO DAILY 5 Days #5 tab 12/30/23 Cyclobenzaprine [Flexeril] 10 mg PO TID PRN #15 tab 06/01/24 Lidocaine 5% Patch [Lidoderm 5% 1 patch TOPICAL DAILY PRN #30 patch 06/01/24 Patch] clindamycin HCL [Cleocin] 300 mg PO Q6HR #40 cap 06/26/24 Cyclobenzaprine [Flexeril] 10 mg PO TID PRN #15 tab 08/06/24 Lidocaine 4% Patch 1 patch TOPICAL DAILY PRN 7 Days 08/06/24 #7 patch predniSONE [Deltasone] 40 mg PO DAILY #10 tab 08/06/24 Allergies Allergy/AdvReac Type Severity Reaction Status Date / Time amoxicillin [Amoxicillin] Allergy Dyspnea Verified 08/06/24 13:03 Review of Systems ROS Statement: Those systems with pertinent positive or pertinent negative responses have been documented in the HPI. ROS Other: All systems not noted in ROS Statement are negative. Past Medical History Additional Past Medical History / Comment(s): ADHD, CEREBRAL PALSY, ARTHRITIS. Pre-eclampsia. Obstetric history: She has had one previous vaginal delivery induced at 34 weeks and 5 days for preeclampsia. This is her second and she's had no care up to this point. She does have a appointment with physicians at [facility] within the next week and a half, newly diagnosed hep C History of Any Multi-Drug Resistant Organisms: None Reported Past Surgical History: Section Past Anesthesia/Blood Transfusion Reactions: No Reported Reaction Past Psychological History: ADD/ADHD, Depression Smoking Status: Current every day smoker Past Alcohol Use History: None Reported Past Drug Use History: None Reported - Past Family History Mother Family Medical History: Hypertension General Exam Limitations: no limitations General appearance: alert, in no apparent distress Head exam: Present: atraumatic, normocephalic, normal inspection Eye exam: Present: normal appearance, PERRL, EOMI. Absent: scleral icterus, conjunctival injection, periorbital swelling Neck exam: Present: normal inspection, tenderness (Diffuse paracervical spine tenderness). Absent: meningismus, full ROM (Pain with range of motion of neck), lymphadenopathy Respiratory exam: Present: normal lung sounds bilaterally. Absent: respiratory distress, wheezes, rales, rhonchi, stridor Cardiovascular Exam: Present: regular rate, normal rhythm, normal heart sounds. Absent: systolic murmur, diastolic murmur, rubs, gallop, clicks Right Shoulder Exam: Present: normal inspection, tenderness (Diffuse tenderness in the posterior aspect of right shoulder). Absent: full ROM (Limited range of motion due to pain) Upper Arm exam: Present: normal inspection, full ROM. Absent: tenderness, swelling Elbow exam: Present: normal inspection, full ROM. Absent: tenderness, swelling Forearm Wrist exam: Present: normal inspection, full ROM. Absent: tenderness, swelling Hand Wrist exam: Present: normal inspection, full ROM. Absent: tenderness, swelling Vascular: Present: normal capillary refill, radial pulse. Absent: vascular compromise Neurological exam: Present: alert, oriented X3 Psychiatric exam: Present: normal affect, normal mood Skin exam: Present: warm, dry, intact, normal color. Absent: rash Course Vital Signs 08/06/24 13:00 Temperature 97.3 F L Pulse Rate 83 Respiratory 20 Rate Blood Pressure 123/83 O2 Sat by Pulse 98 Oximetry Medical Decision Making - Medical Decision Making Was pt. sent in by a medical professional or institution ([employer] White, [employer]FT CREW CHIEF, urgent care, hospital, or longterm...) When possible be specific @ -No Did you speak to anyone other than the patient for history (EMS, parent, family, police, friend...)? What history was obtained from this source @ -No Did you review nursing and triage notes (agree or disagree)? Why? @ -I reviewed and agree with nursing and triage notes Were old charts reviewed (outside hosp., previous admission, EMS record, old EKG, old radiological studies, urgent care reports/EKG's, longterm records)? Report findings @ -No old charts were reviewed Differential Diagnosis (chest pain, altered mental status, abdominal pain women, abdominal pain men, vaginal bleeding, weakness, fever, dyspnea, syncope, headache, dizziness, GI bleed, back pain, seizure, CVA, palpatations, mental health, musculoskeletal)? @ -Differential Musculoskeletal Muscular strain, contusion, ligament sprain, fracture, arthritis, septic arthritis, bursitis, cellulitis, muscle spasm, nerve compression, DVT, arterial occlusion, herpes zoster, electrolyte abnormality, tumor.... This is not meant to be in all inclusive list EKG interpreted by me (3pts min.). @ -None X-rays interpreted by me (1pt min.). @ -X-ray right shoulder reveals no acute process CT interpreted by me (1pt min.). @ -None done U/S interpreted by me (1pt. min.). @ -None done What testing was considered but not performed or refused? (CT, X-rays, U/S, labs)? Why? @ -None What meds were considered but not given or refused? Why? @ -None Did you discuss the management of the patient with other professionals (professionals i.e. [employer] White, FIXED WING AIRCRAFT CREW CHIEF, lab, RT, psych nurse, 7th grade social studies teacher, dye tub operator, teacher, classifications officer cc/cm, case filler)? Give summary @ -No Was smoking cessation discussed for >3mins.? @ -No Was critical care preformed (if so, how long)? @ -No Were there social determinants of health that impacted care today? How? (Homelessness, low income, unemployed, alcoholism, drug addiction, transportation, low edu. Level, literacy, decrease access to med. care, intermediate, rehab)? @ -No Was there de-escalation of care discussed even if they declined (Discuss DNR or withdrawal of care, Hospice)? DNR status @ -No What co-morbidities impacted this encounter? (DM, HTN, Smoking, COPD, CAD, Cancer, CVA, ARF, Chemo, Hep., AIDS, mental health diagnosis, sleep apnea, morbid obesity)? @ -None Was patient admitted / discharged? Hospital course, mention meds given and rou te, prescriptions, significant lab abnormalities, going to OR and other pertinent info. @ -Discharge. 28-year-old female presenting for right neck/shoulder pain x 2 weeks with sharp, shooting pain down the right upper extremity. No injury or trauma. She is neurovascularly intact. Provided with IM Toradol, Norflex, and lidocaine patches. X-ray right shoulder reveals no acute process. Discussed diagnosis of cervical radiculopathy with patient. Provided with outpatient course of steroids, muscle relaxers, and lidocaine patches. Advised to avoid taking anti-inflammatories with steroids. Appropriate return precautions and follow-up care discussed. Case was discussed with ED attending Dr. Che. Undiagnosed new problem with uncertain prognosis? @ -No Drug Therapy requiring intensive monitoring for toxicity (Heparin, Nitro, Insulin, Cardizem)? @ -No Were any procedures done? @ -No Diagnosis/symptom? @ -Cervical radiculopathy Acute, or Chronic, or Acute on Chronic? @ -Acute Uncomplicated (without systemic symptoms) or Complicated (systemic symptoms)? @ -Uncomplicated Side effects of treatment? @ -No Exacerbation, Progression, or Severe Exacerbation? @ -No Poses a threat to life or bodily function? How? (Chest pain, USA, [place], pneumonia, PE, COPD, DKA, ARF, appy, cholecystitis, CVA, Diverticulitis, Homicidal, Suicidal, threat to staff... and all critical care pts) @ -No Disposition Clinical Impression: Cervical radiculopathy Disposition: HOME SELF-CARE Condition: Stable Instructions (If sedation given, give patient instructions): Cervical Radiculopathy (ED) Additional Instructions: Take steroids as prescribed. Take muscle relaxers and use lidocaine patches as needed for pain. Do not take anti-inflammatories and steroids at the same time as the skin irritate the lining of the stomach. You may resume anti- inflammatory use after steroid course is completed. Please return to the Emergency Department if symptoms worsen or any other concerns. Prescriptions: predniSONE [Deltasone] 40 mg PO DAILY #10 tab Cyclobenzaprine [Flexeril] 10 mg PO TID PRN #15 tab PRN Reason: Muscle Spasm Lidocaine 4% Patch 1 patch TOPICAL DAILY PRN 7 Days #7 patch PRN Reason: Pain Is patient prescribed a controlled substance at d/c from ED?: No Referrals: None,Stated [Primary Care Provider] - 1-2 days Time of Disposition: 14:26
[2024-08-06] MEDS: LIDOCAINE 4% PATCH TOPICAL ONE (13:51)
[2024-08-06] MEDS: KETOROLAC 15 MG/ML 1 ML VIAL IM STA (13:51)
[2024-08-06] MEDS: ORPHENADRINE 30 MG/ML 2 ML VIAL IM STA (13:52)
--- NOTE | 2024-08-06 14:10 | XR ---
EXAMINATION TYPE: XR shoulder complete RT DATE OF EXAM: 08/06/2024 2:06 PM INDICATION: Patient age:Female; 28 years old; Reason for study: right shoulder pain; pain COMPARISON: Chest radiograph 02/24/2024 TECHNIQUE: The right shoulder was examined in AP, internally rotated and scapular Y projections. . FINDINGS: No evidence of acute osseous pathology, joint dislocation, or soft tissue swelling. The remaining por tions of the visualized chest are unremarkable. IMPRESSION: No acute osseous pathology. [facility], , 08/06/2024 2:08 PM
[2024-08-06 14:40] VITALS: BP 125/78; PULSE 78; RESP 18; TEMP 97.8
== END 2024-08-06 14:39 | disposition home or self-care (01) ==
LOC: EC 12:41
DX: M54.12 Radiculopathy, cervical region (principal); F17.200 Nicotine dependence, unspecified, uncomplicated; Z88.0 Allergy status to penicillin
CPT/HCPCS: 73030; 99283; 96372 ×2; J2360; J1885

== ENCOUNTER 2024-12-14 11:41 | Emergency (ER) | payer OTHER ==
--- NOTE | 2024-12-14 12:54 | ED ---
Back Pain HPI - General Chief Complaint: Back Pain/Injury Stated Complaint: Back/BL leg pain Time Seen by Provider: 12/14/24 12:28 Source: patient, RN notes reviewed Mode of arrival: ambulatory Limitations: no limitations - History of Present Illness Initial Comments: This is a 29-year-old female who presents to the emergency department for back pain. Patient has a history of nerve damage in her back causing frequent pain. States that she has had a flareup for the last 2 days that feels somewhat different. States that she feels like there is a strange bulge in her left mid back and she has associated nausea/vomiting as well as radiation down her extremities. She does not currently follow with a primary care provider or a back specialist. MD Complaint: back pain - Related Data Home Medications Medication Instructions Recorded Confirmed Pnv No.[id number]/Ferrous Fum/Folic AC 1 tab PO DAILY 11/30/19 05/23/20 [ Multivitamin Tablet] Previous Rx's Medication Instructions Recorded Sulfamethox-Tmp 800-160Mg [Bactrim 1 each PO Q12HR 3 Days #6 tab 09/20/21 Ds] Cyclobenzaprine [Flexeril] 10 mg PO TID PRN #30 tab 12/30/23 Doxycycline Hyclate 100 mg PO BID 10 Days #20 capsule 12/30/23 predniSONE 50 mg PO DAILY 5 Days #5 tab 12/30/23 Cyclobenzaprine [Flexeril] 10 mg PO TID PRN #15 tab 06/01/24 Lidocaine 5% Patch [Lidoderm 5% 1 patch TOPICAL DAILY PRN #30 patch 06/01/24 Patch] clindamycin HCL [Cleocin] 300 mg PO Q6HR #40 cap 06/26/24 Cyclobenzaprine [Flexeril] 10 mg PO TID PRN #15 tab 08/06/24 Lidocaine 4% Patch 1 patch TOPICAL DAILY PRN 7 Days 08/06/24 #7 patch predniSONE [Deltasone] 40 mg PO DAILY #10 tab 08/06/24 Cyclobenzaprine [Flexeril] 10 mg PO TID PRN #30 tab 12/14/24 Lidocaine 5% Patch [Lidoderm 5% 1 patch TOPICAL DAILY PRN #30 patch 12/14/24 Patch] Ondansetron Odt [Zofran Odt] 4 mg PO Q8HR PRN #15 tab 12/14/24 predniSONE 50 mg PO DAILY 5 Days #5 tab 12/14/24 Allergies Allergy/AdvReac Type Severity Reaction Status Date / Time amoxicillin [Amoxicillin] Allergy Dyspnea Verified 12/14/24 12:06 Review of Systems ROS Statement: Those systems with pertinent positive or pertinent negative responses have been documented in the HPI. ROS Other: All systems not noted in ROS Statement are negative. Past Medical History Additional Past Medical History / Comment(s): ADHD, CEREBRAL PALSY, ARTHRITIS. Pre-eclampsia. Obstetric history: She has had one previous vaginal delivery induced at 34 weeks and 5 days for preeclampsia. This is her second and she's had no care up to this point. She does have a appointment with physicians at [facility] within the next week and a half, newly diagnosed hep C History of Any Multi-Drug Resistant Organisms: None Reported Past Surgical History: Section Past Anesthesia/Blood Transfusion Reactions: No Reported Reaction Past Psychological History: ADD/ADHD, Depression Smoking Status: Current every day smoker Past Alcohol Use History: None Reported Past Drug Use History: Marijuana - Past Family History Mother Family Medical History: Hypertension General Exam Limitations: no limitations General appearance: alert, in no apparent distress Head exam: Present: atraumatic, normocephalic, normal inspection Respiratory exam: Present: normal lung sounds bilaterally. Absent: respiratory distress, wheezes, rales, rhonchi, stridor Cardiovascular Exam: Present: regular rate, normal rhythm GI/Abdominal exam: Present: soft. Absent: distended, tenderness Back exam: Present: CVA tenderness (L). Absent: CVA tenderness (R) Neurological exam: Present: alert, oriented X3, CN II-XII intact Psychiatric exam: Present: normal affect, normal mood Skin exam: Present: warm, dry, intact, normal color. Absent: rash Course Vital Signs 12/14/24 12/14/24 12:02 15:15 Temperature 99.2 F 98.5 F Pulse Rate 95 65 Respiratory 18 19 Rate Blood Pressure 159/103 131/79 O2 Sat by Pulse 98 97 Oximetry Medical Decision Making - Medical Decision Making This is a 29-year-old female who presents to the emergency department for back pain. Was pt. sent in by a medical professional or institution? @ -No Did you speak to anyone other than the patient for history? @ -No Did you review nursing and triage notes? @ -Yes, and I agree, it is accurate with regards to the patient's symptoms. Were old charts reviewed? @ -No Differential Diagnosis? @ -Differential Back Pain: Strain, zoster, cauda equina syndrome, epidural abscess, vertebral osteomyelitis, discitis, fracture, subluxation, disc herniation, DJD, spinal stenosis, dissection, AAA, pancreatitis, peptic ulcer disease, pyelonephritis, kidney stone, this is not meant to be an all-inclusive list. EKG interpreted by me (3pts min.)? @ -Not obtained X-rays interpreted by me (1pt min.)? @ -Not obtained CT interpreted by me (1pt min.)? @ -CT scan of the abdomen and pelvis obtained. My interpretation identifies no ureteral calculus. U/S interpreted by me (1pt. min.)? @ -Not obtained What testing was considered but not performed? (CT, X-rays, U/S, labs)? Why? @ -None What meds were considered but not given? Why? @ -None Did you discuss the management of the patient with other professionals? @ -No Did you reconcile home meds? @ -No Was smoking cessation discussed for >3mins.? @ -I discussed smoking cessation for greater than 3 minutes. The risk of smoking were discussed with the patient including but not limited to risks of cancer, stroke, coronary artery disease and COPD. Also discussed with patient were multiple methods of quitting smoking. Lastly we discussed the financial cost of smoking. Was critical care preformed (if so, how long)? @ -No Were there social determinants of health that impacted care today? How? (Homelessness, low income, unemployed, alcoholism, drug addiction, transportation, low edu. Level, literacy, decrease access to med. care, retirement, rehab)? @ -No Was there de-escalation of care discussed even if they declined? (Discuss DNR or withdrawal of care, Hospice)? @ -No What co-morbidities impacted this encounter? (DM, HTN, Smoking, COPD, CAD, Cancer, CVA, Hep., AIDS, mental health diagnosis, sleep apnea, morbid obesity)? @ -Smoking, cerebral palsy, arthritis Was patient admitted / discharged? @ -Discharged. Lab work unremarkable. Urinalysis grossly contaminated without signs of blood or infection. CT scan of the abdomen and pelvis obtained also revealing no acute findings. Patient likely experiencing a flareup of her sciatica/lumbar radiculopathy. Pain was managed in the emergency department. Prescription for prednisone, Flexeril, lidocaine patches, and Zofran provided with dosing instructions reviewed. Information for follow-up with orthopedic spine provided. She was also given a list of local primary care providers to become established for ongoing medical care. Patient discharged home in stable condition. Case discussed with ED attending Dr. Lopez. Return precautions reviewed in depth, the patient is instructed to return to the emergency department with any new, worsening, or concerning symptoms. Patient verbalized understanding. Undiagnosed new problem with uncertain prognosis? @ -None Drug Therapy requiring intensive monitoring for toxicity (Heparin, Nitro, Insulin, Cardizem)? @ -None Were any procedures done? @ -None Diagnosis/symptom? @ -Left lumbar radiculopathy/sciatica Acute, or Chronic, or Acute on Chronic? @ -Acute on chronic Uncomplicated (without systemic symptoms) or Complicated (systemic symptoms)? @ -Uncomplicated Side effects of treatment? @ -None Exacerbation, Progression, or Severe Exacerbation] @ -Exacerbation Poses a threat to life or bodily function? @ -No - Lab Data Result diagrams: 12/14/24 13:31 12/14/24 13:31 Lab Results 12/14/24 12/14/24 12/14/24 Range/Units 13:31 13:31 13:31 WBC 7.92 (4.50-10.00) 10*3/uL RBC 4.06 L (4.10-5.20) 10*6/uL Hgb 11.5 L (12.0-15.0) g/dL Hct 35.8 L (37.2-46.3) % MCV 88.2 (80.0-97.0) fL MCH 28.3 (27.0-32.0) pg MCHC 32.1 (32.0-37.0) g/dL Plt Count 277 (140-440) 10*3/uL MPV 9.4 L (9.5-12.2) fL Immature Gran % (Auto) 0.1 % Neutrophils % 51.6 % Lymphocytes % 34.8 % Monocytes % 8.1 % Eosinophils % 4.9 % Basophils % 0.5 % Immature Gran # 0.01 (0.00-0.04) 10*3/uL Neutrophils # 4.08 (1.80-7.70) 10*3/uL Lymphocytes # 2.76 (0.90-5.00) 10*3/uL Monocytes # 0.64 (0.20-1.00) 10*3/uL Eosinophils # 0.39 H (0.04-0.35) 10*3/uL Basophils # 0.04 (0.00-0.10) 10*3/uL Sodium 137 (137-145) mmol/L Potassium 4.4 (3.5-5.1) mmol/L Chloride 103 (98-107) mmol/L Carbon Dioxide 23 (22-30) mmol/L Anion Gap 11 mmol/L BUN 10 (7-17) mg/dL Creatinine 0.47 L (0.52-1.04) mg/dL Est GFR (CKD-EPI)AfAm >90 (>60 ml/min/1.73 sqM) Est GFR (CKD-EPI)NonAf >90 (>60 ml/min/1.73 sqM) Glucose 81 (74-99) mg/dL Plasma Lactic Acid Drake 1.2 (0.7-2.0) mmol/L Calcium 9.1 (8.4-10.2) mg/dL Total Bilirubin 0.4 (0.2-1.3) mg/dL AST 25 (14-36) U/L ALT 18 (4-34) U/L Alkaline Phosphatase 64 (38-126) U/L Total Protein 6.8 (6.3-8.2) g/dL Albumin 4.0 (3.5-5.0) g/dL HCG, Qual Urine Color Urine Appearance (Clear) Urine pH (5.0-8.0) Ur Specific Living[place] (1.001-1.035) Urine Protein (Negative) Urine Glucose (UA) (Negative) Urine Ketones (Negative) Urine Blood (Negative) Urine Nitrite (Negative) Urine Bilirubin (Negative) Urine Urobilinogen (<2.0) mg/dL Ur Leukocyte Esterase (Negative) Urine RBC (0-5) /hpf Urine WBC (0-5) /hpf Ur Squamous Epith Cells (0-4) /hpf Amorphous Sediment (None) /hpf Urine Mucus (None) /hpf 12/14/24 12/14/24 Range/Units 13:31 14:22 WBC (4.50-10.00) 10*3/uL RBC (4.10-5.20) 10*6/uL Hgb (12.0-15.0) g/dL Hct (37.2-46.3) % MCV (80.0-97.0) fL MCH (27.0-32.0) pg MCHC (32.0-37.0) g/dL Plt Count (140-440) 10*3/uL MPV (9.5-12.2) fL Immature Gran % (Auto) % Neutrophils % % Lymphocytes % % Monocytes % % Eosinophils % % Basophils % % Immature Gran # (0.00-0.04) 10*3/uL Neutrophils # (1.80-7.70) 10*3/uL Lymphocytes # (0.90-5.00) 10*3/uL Monocytes # (0.20-1.00) 10*3/uL Eosinophils # (0.04-0.35) 10*3/uL Basophils # (0.00-0.10) 10*3/uL Sodium (137-145) mmol/L Potassium (3.5-5.1) mmol/L Chloride (98-107) mmol/L Carbon Dioxide (22-30) mmol/L Anion Gap mmol/L BUN (7-17) mg/dL Creatinine (0.52-1.04) mg/dL Est GFR (CKD-EPI)AfAm (>60 ml/min/1.73 sqM) Est GFR (CKD-EPI)NonAf (>60 ml/min/1.73 sqM) Glucose (74-99) mg/dL Plasma Lactic Acid Drake (0.7-2.0) mmol/L Calcium (8.4-10.2) mg/dL Total Bilirubin (0.2-1.3) mg/dL AST (14-36) U/L ALT (4-34) U/L Alkaline Phosphatase (38-126) U/L Total Protein (6.3-8.2) g/dL Albumin (3.5-5.0) g/dL HCG, Qual Not Detected Urine Color Colorless Urine Appearance Turbid H (Clear) Urine pH 7.0 (5.0-8.0) Ur Specific Living[place] 1.014 (1.001-1.035) Urine Protein Negative (Negative) Urine Glucose (UA) Negative (Negative) Urine Ketones Negative (Negative) Urine Blood Negative (Negative) Urine Nitrite Negative (Negative) Urine Bilirubin Negative (Negative) Urine Urobilinogen <2.0 (<2.0) mg/dL Ur Leukocyte Esterase Negative (Negative) Urine RBC <1 (0-5) /hpf Urine WBC <1 (0-5) /hpf Ur Squamous Epith Cells 25 H (0-4) /hpf Amorphous Sediment Rare H (None) /hpf Urine Mucus Rare H (None) /hpf - Radiology Data Radiology results: report reviewed, image reviewed Disposition Clinical Impression: Left lumbar radiculopathy, Nicotine dependence, Nausea Disposition: HOME SELF-CARE Instructions (If sedation given, give patient instructions): Acute Low Back Pain (ED), Lumbar Radiculopathy (ED) Additional Instructions: Return to the emergency department with any new, worsening, or concerning symptoms. Take the prednisone daily for 5 days. Take the Flexeril up to 3 times a day. You can also apply the lidocaine patches daily. Take the Zofran up to every 8 hours as needed for nausea and vomiting. You can follow-up with either of the spine specialists listed below. Please also review the list of primary care providers provided to become established for ongoing medical management. Prescriptions: Cyclobenzaprine [Flexeril] 10 mg PO TID PRN #30 tab PRN Reason: Pain Lidocaine 5% Patch [Lidoderm 5% Patch] 1 patch TOPICAL DAILY PRN #30 patch PRN Reason: Pain predniSONE 50 mg PO DAILY 5 Days #5 tab Ondansetron Odt [Zofran Odt] 4 mg PO Q8HR PRN #15 tab PRN Reason: Nausea And Vomiting Is patient prescribed a controlled substance at d/c from ED?: No Referrals: None,Stated [Primary Care Provider] - 1-2 days Francine Kauffman DO [Doctor of Osteopathic Medicine] - 1-2 days Armando Barroso DO [Doctor of Osteopathic Medicine] - 1-2 days Forms: Area PCPs Time of Disposition: 15:54
[2024-12-14] MEDS: SODIUM CHLORIDE 0.9% 1,000 ML IV ONE (13:21)
[2024-12-14] MEDS: DEXAMETHASONE SOD PHOSPHATE 10 MG/ML 1 ML VIAL IVP STA (13:21)
[2024-12-14] MEDS: ONDANSETRON 4 MG/2 ML VIAL IVP STA (13:22)
[2024-12-14] MEDS: KETOROLAC 15 MG/ML 1 ML VIAL IVP STA ×2 (13:22→15:57)
[2024-12-14] MEDS: HYDROmorphone 1 MG/ML 1 ML SYRINGE IVP STA ×2 (13:23→16:00)
[2024-12-14 13:49] LABS: Basophils # (A) 0.04 10*3/uL (0.00-0.10); Basophils % (A) 0.5 %; Eosinophils # (A) 0.39 10*3/uL (0.04-0.35); Eosinophils % (A) 4.9 %; HCT 35.8 % (37.2-46.3); HGB 11.5 g/dL (12.0-15.0); Lymphocytes # (A) 2.76 10*3/uL (0.90-5.00); Lymphocytes % (A) 34.8 %; MCH 28.3 pg (27.0-32.0); MCHC 32.1 g/dL (32.0-37.0); MCV 88.2 fL (80.0-97.0); Monocytes # (A) 0.64 10*3/uL (0.20-1.00); Monocytes % (A) 8.1 %; Neutrophils # (A) 4.08 10*3/uL (1.80-7.70); Neutrophils % (A) 51.6 %; Platelet Count 277 10*3/uL (140-440); RBC 4.06 10*6/uL (4.10-5.20); RDW 14.6 % (11.5-14.5); WBC 7.92 10*3/uL (4.50-10.00)
[2024-12-14 14:01] LABS: ALT 18 U/L (4-34); AST 25 U/L (14-36); African American GFR (CKD) >90 (>60 ml/min/1.73 sqM); Albumin 4.0 g/dL (3.5-5.0); Alkaline Phosphatase 64 U/L (38-126); Anion Gap 11 mmol/L; Blood Urea Nitrogen 10 mg/dL (7-17); Calcium 9.1 mg/dL (8.4-10.2); Carbon Dioxide 23 mmol/L (22-30); Chloride 103 mmol/L (98-107); Glucose 81 mg/dL (74-99); Non-African American GFR(CKD) >90 (>60 ml/min/1.73 sqM); Potassium 4.4 mmol/L (3.5-5.1); Sodium 137 mmol/L (137-145); Total Protein 6.8 g/dL (6.3-8.2)
[2024-12-14 14:42] LABS: Amorphous Sediment,Urine Rare /hpf; Bilirubin,Urine Negative (Negative); Blood,Urine Negative (Negative); Color,Urine Colorless; Glucose,Urine (UA) Negative (Negative); Ketones,Urine Negative (Negative); Leukocyte Esterase,Urine Negative (Negative); Mucus,Urine Rare /hpf; Nitrite,Urine Negative (Negative); PH, Urine 7.0 (5.0-8.0); Protein,Urine Negative (Negative); RBC,Urine <1 /hpf (0-5); Specific Gravity,Urine 1.014 (1.001-1.035); Squamous Epithelial Cell,Urine 25 /hpf (0-4); Urobilinogen,Urine <2.0 mg/dL (<2.0); WBC,Urine <1 /hpf (0-5)
[2024-12-14 15:18] VITALS: BP 131/79; PULSE 65; RESP 19; TEMP 98.5
--- NOTE | 2024-12-14 15:19 | CT ---
EXAMINATION TYPE: CT abdomen pelvis wo con DATE OF EXAM: 12/14/2024 3:06 PM COMPARISON: None. CLINICAL INDICATION: Female, 29 years old with history of Left flank pain, LT flank pain, back pain, radiating into legs TECHNIQUE: Axial images were obtained from above the diaphragm to the pubic rami in the axial plane a t 5 mm thick sections. Reconstructed images are reviewed on the computer in the coronal plane. CONTRAST: mL of . Study performed without Oral Contrast DLP: 1961 mGycm, Automated exposure control for dose reduction was used. FINDINGS: Limited CT sections are obtained the lung bases. The lung bases are clear. CT ABDOMEN: Liver: Normal Spleen: Normal Pancreas: Normal Adrenal glands: The adrenal glands are normal. Gallbladder: Normal Kidneys: No masses are evident. No hydronephrosis is present. No cysts are present. No renal stone s are evident. No hydroureter is evident. Aorta: Normal Inferior vena cava: Normal. CT PELVIS: Loops of bowel within the abdomen and pelvis are normal. The study is without oral contrast bowel . Appendix: Normal as visualized. Urinary bladder: Normal. Genitourinary structures: There is a 4.7 x 5.6 cm right ovarian cyst. Uterus appears normal. Left adn exa is normal. Osseous structures: No suspicious lytic or sclerotic lesions. IMPRESSION: 1. Right ovarian cyst. 2. No suspicious abnormality to account for left flank pain [facility], , 12/14/2024 3:16 PM
[2024-12-14] MEDS: ORPHENADRINE 30 MG/ML 2 ML VIAL IVP STA (15:55)
[2024-12-14] MEDS: LIDOCAINE 4% PATCH TOPICAL ONE (16:03)
[2024-12-14] MEDS: ACET/COD 300 MG/30 MG STARTER PACK 6 TAB BTL PO STA (16:10)
[2024-12-14] MEDS: traMADol 50 MG STARTER PACK 3 TAB BTL PO STA (16:11)
== END 2024-12-14 16:17 | disposition home or self-care (01) ==
LOC: EC 11:41
DX: M54.16 Radiculopathy, lumbar region (principal); R11.0 Nausea; G80.9 Cerebral palsy, unspecified; M19.90 Unspecified osteoarthritis, unspecified site; F17.200 Nicotine dependence, unspecified, uncomplicated; Z88.0 Allergy status to penicillin
CPT/HCPCS: 36415; 80053; 83605; 85025; 81001; 84703; 74176; 99284; 96374; 96375; 96376; 96361; J1100; J2360; J2405; J1171; J1885

== ENCOUNTER 2024-12-20 15:16 | Emergency (ER) | payer OTHER ==
[2024-12-20 15:20] VITALS: RESP 16
--- NOTE | 2024-12-20 15:57 | ED ---
Back Pain HPI - General Chief Complaint: Back Pain/Injury Stated Complaint: Back pain Time Seen by Provider: 12/20/24 15:31 Source: patient, RN notes reviewed Limitations: no limitations - History of Present Illness Initial Comments: Is a 29-year-old female with history of cerebral palsy presenting for low back pain (02/13) x 3 days. Patient states pain radiates to her left thigh with known history of similar symptoms in the past. Patient endorses receiving AP CT scanning in this ER on 12/14/2024 with only discovery being a right ovarian cyst. Patient does endorse some intermittent left lower quadrant abdominal pain. Patient states pain worsens with movement. States she has an appointment with her PCP next month. Denies fever, chills, N/V/D, saddle paresthesia, urinary incontinence/retention, dysuria, hematuria. MD Complaint: back pain Onset/Timin -: days(s) Radiation: left leg Severity scale (1-10): 8 Consistency: intermittent Improves With: immobilization, supine Worsens With: movement, sitting upright Associated Symptoms: abdominal pain Treatments Prior to Arrival: prescription analgesics (Flexeril, lidocaine patches) - Related Data Home Medications Medication Instructions Recorded Confirmed Pnv No.95/Ferrous Fum/Folic AC 1 tab PO DAILY 11/30/19 05/23/20 [ Multivitamin Tablet] Previous Rx's Medication Instructions Recorded Sulfamethox-Tmp 800-160Mg [Bactrim 1 each PO Q12HR 3 Days #6 tab 09/20/21 Ds] Cyclobenzaprine [Flexeril] 10 mg PO TID PRN #30 tab 12/30/23 Doxycycline Hyclate 100 mg PO BID 10 Days #20 capsule 12/30/23 predniSONE 50 mg PO DAILY 5 Days #5 tab 12/30/23 Cyclobenzaprine [Flexeril] 10 mg PO TID PRN #15 tab 06/01/24 Lidocaine 5% Patch [Lidoderm 5% 1 patch TOPICAL DAILY PRN #30 patch 06/01/24 Patch] clindamycin HCL [Cleocin] 300 mg PO Q6HR #40 cap 06/26/24 Cyclobenzaprine [Flexeril] 10 mg PO TID PRN #15 tab 08/06/24 Lidocaine 4% Patch 1 patch TOPICAL DAILY PRN 7 Days 08/06/24 #7 patch predniSONE [Deltasone] 40 mg PO DAILY #10 tab 08/06/24 Cyclobenzaprine [Flexeril] 10 mg PO TID PRN #30 tab 12/14/24 Lidocaine 5% Patch [Lidoderm 5% 1 patch TOPICAL DAILY PRN #30 patch 12/14/24 Patch] Ondansetron Odt [Zofran Odt] 4 mg PO Q8HR PRN #15 tab 12/14/24 predniSONE 50 mg PO DAILY 5 Days #5 tab 12/14/24 Ibuprofen [Motrin] 800 mg PO Q8HR PRN #30 tab 12/20/24 Lidocaine 4% Patch 1 patch TOPICAL Q24H PRN #10 patch 12/20/24 Allergies Allergy/AdvReac Type Severity Reaction Status Date / Time amoxicillin [Amoxicillin] Allergy Dyspnea Verified 12/24/24 11:55 Review of Systems ROS Statement: Those systems with pertinent positive or pertinent negative responses have been documented in the HPI. ROS Other: All systems not noted in ROS Statement are negative. Past Medical History Additional Past Medical History / Comment(s): ADHD, CEREBRAL PALSY, ARTHRITIS. Pre-eclampsia. Obstetric history: She has had one previous vaginal delivery induced at 34 weeks and 5 days for preeclampsia. This is her second and she's had no care up to this point. She does have a appointment with physicians at [facility] within the next week and a half, newly diagnosed hep C History of Any Multi-Drug Resistant Organisms: None Reported Past Surgical History: Section Past Anesthesia/Blood Transfusion Reactions: No Reported Reaction Past Psychological History: ADD/ADHD, Depression Smoking Status: Current every day smoker Past Alcohol Use History: None Reported Past Drug Use History: Marijuana - Past Family History Mother Family Medical History: Hypertension General Exam Limitations: no limitations General appearance: alert, in no apparent distress, obese Head exam: Present: atraumatic, normocephalic, normal inspection Eye exam: Present: normal appearance, PERRL, EOMI. Absent: scleral icterus, conjunctival injection, periorbital swelling ENT exam: Present: normal exam, mucous membranes moist Neck exam: Present: normal inspection. Absent: tenderness, meningismus, lymphadenopathy Respiratory exam: Present: normal lung sounds bilaterally. Absent: respiratory distress, wheezes, rales, rhonchi, stridor Cardiovascular Exam: Present: regular rate, normal rhythm, normal heart sounds. Absent: systolic murmur, diastolic murmur, rubs, gallop, clicks GI/Abdominal exam: Present: soft, tenderness (Positive left adnexal TTP without guarding), normal bowel sounds. Absent: distended, guarding, rebound, rigid Extremities exam: Present: normal inspection, full ROM, normal capillary refill. Absent: tenderness, pedal edema, joint swelling, calf tenderness Back exam: Present: tenderness (Positive left posterior axillary TTP with muscle spasm), muscle spasm. Absent: paraspinal tenderness, vertebral tenderness Neurological exam: Present: alert, oriented X3, CN II-XII intact Psychiatric exam: Present: normal affect, normal mood Skin exam: Present: warm, dry, intact, normal color. Absent: rash Course Vital Signs 12/20/24 12/20/24 15:17 18:20 Temperature 97.9 F 98 F Pulse Rate 92 90 Respiratory 16 16 Rate Blood Pressure 146/98 138/88 O2 Sat by Pulse 98 98 Oximetry Medical Decision Making - Medical Decision Making Was pt. sent in by a medical professional or institution (, PA, ROAST MASTER, urgent care, hospital, or long term...) When possible be specific @ -No Did you speak to anyone other than the patient for history (EMS, parent, family, police, friend...)? What history was obtained from this source @ -No Did you review nursing and triage notes (agree or disagree)? Why? @ -I reviewed and agree with nursing and triage notes Were old charts reviewed (outside hosp., previous admission, EMS record, old EKG, old radiological studies, urgent care reports/EKG's, long term records)? Report findings @ -AP CT from 12/14/2024 shows right ovarian cyst with no acute or concerning findings. Differential Diagnosis (chest pain, altered mental status, abdominal pain women, abdominal pain men, vaginal bleeding, weakness, fever, dyspnea, syncope, headache, dizziness, GI bleed, back pain, seizure, CVA, palpatations, mental health, musculoskeletal)? @ -Differential Back Pain: Strain, zoster, cauda equina syndrome, epidural abscess, vertebral osteomyelitis, discitis, fracture, subluxation, disc herniation, DJD, spinal stenosis, dissection, AAA, pancreatitis, peptic ulcer disease, pyelonephritis, kidney stone, this is not meant to be an all-inclusive list. Differential Abdominal Pain Women: Appendicitis, Cholecystitis, diverticulosis, ischemic bowel, pancreatitis, hepatitis, UTI, gastroenteritis, AAA, incarcerated hernia, bowel obstruction, constipation, inflammatory bowel, hepatitis, peptic ulcer disease, splenic infarction, perforated viscus, vulvitis, ovarian torsion, PID, kidney stone, placenta abruption, this is not meant to be an all-inclusive list EKG interpreted by me (3pts min.). @ -Not done X-rays interpreted by me (1pt min.). @ -None done CT interpreted by me (1pt min.). @ -None done U/S interpreted by me (1pt. min.). @ -Transvaginal ultrasound shows simple cyst on right ovary with left ovary obscured by overlying bowel gas. No evidence of right ovarian torsion. What testing was considered but not performed or refused? (CT, X-rays, U/S, labs)? Why? @ -None What meds were considered but not given or refused? Why? @ -None Did you discuss the management of the patient with other professionals (professionals i.e. , PA, ROAST MASTER, lab, RT, psych nurse, social services specialist, industrial spray painter, teacher, banking services officer, registered nurse hh case manager)? Give summary @ -No Was smoking cessation discussed for >3mins.? @ -No Was critical care preformed (if so, how long)? @ -No Were there social determinants of health that impacted care today? How? (Homelessness, low income, unemployed, alcoholism, drug addiction, transpo rtation, low edu. Level, literacy, decrease access to med. care, skilled nursing, rehab)? @ -No Was there de-escalation of care discussed even if they declined (Discuss DNR or withdrawal of care, Hospice)? DNR status @ -No What co-morbidities impacted this encounter? (DM, HTN, Smoking, COPD, CAD, Cancer, CVA, ARF, Chemo, Hep., AIDS, mental health diagnosis, sleep apnea, morbid obesity)? @ -None Was patient admitted / discharged? Hospital course, mention meds given and route, prescriptions, significant lab abnormalities, going to OR and other pertinent info. @ -Patient initially provided IM Toradol, Dilaudid, Norflex, p.o. Tylenol and lidocaine patch. UA shows large amount of blood and negative hCG. Transvaginal ultrasound shows simple cyst on right ovary with left ovary obscured by overly ing bowel gas. No evidence of right ovarian torsion. AP CT from last week shows no indication of acute spinal fracture/dislocation or nephrolithiasis. Motrin and lidocaine patches sent to patient's pharmacy. Advised alternate Tylenol/Motrin every 4 hours for pain as well as RICE. Advised follow-up with PCP/orthopedics for ongoing management of lower back pain. Discussed patient with Dr. Che. Undiagnosed new problem with uncertain prognosis? @ -No Drug Therapy requiring intensive monitoring for toxicity (Heparin, Nitro, Insulin, Cardizem)? @ -No Were any procedures done? @ -No Diagnosis/symptom? @ -Mechanical lumbar back pain, lumbar radiculopathy Acute, or Chronic, or Acute on Chronic? @ -Acute Uncomplicated (without systemic symptoms) or Complicated (systemic symptoms)? @ -Uncomplicated Side effects of treatment? @ -No Exacerbation, Progression, or Severe Exacerbation? @ -No Poses a threat to life or bodily function? How? (Chest pain, USA, [place], pneumonia, PE, COPD, DKA, ARF, appy, cholecystitis, CVA, Diverticulitis, Homicidal, Suicidal, threat to staff... and all critical care pts) @ -No - Lab Data Lab Results 12/20/24 12/20/24 Range/Units 16:11 16:11 Urine Color Light Yellow Urine Appearance Clear (Clear) Urine pH 5.5 (5.0-8.0) Ur Specific [place] 1.020 (1.001-1.035) Urine Protein Negative (Negative) Urine Glucose (UA) Negative (Negative) Urine Ketones Negative (Negative) Urine Blood Large H (Negative) Urine Nitrite Negative (Negative) Urine Bilirubin Negative (Negative) Urine Urobilinogen <2.0 (<2.0) mg/dL Ur Leukocyte Esterase Negative (Negative) Urine RBC 28 H (0-5) /hpf Urine WBC 3 (0-5) /hpf Ur Squamous Epith Cells 3 (0-4) /hpf Urine Bacteria Rare H (None) /hpf Urine Mucus Many H (None) /hpf Urine HCG, Qual Not Detected (Not Detectd) Disposition Clinical Impression: Left lumbar radiculopathy, Mechanical back pain Disposition: HOME SELF-CARE Condition: Fair Instructions (If sedation given, give patient instructions): Acute Low Back Pain (ED) Prescriptions: Lidocaine 4% Patch 1 patch TOPICAL Q24H PRN #10 patch PRN Reason: Pain Ibuprofen [Motrin] 800 mg PO Q8HR PRN #30 tab PRN Reason: Pain Is patient prescribed a controlled substance at d/c from ED?: No Referrals: None,Stated [Primary Care Provider] - 1-2 days Time of Disposition: 18:30
[2024-12-20] MEDS: ACETAMINOPHEN TAB 500 MG TAB PO STA (16:00)
[2024-12-20] MEDS: ORPHENADRINE 30 MG/ML 2 ML VIAL IM STA (16:01)
[2024-12-20] MEDS: LIDOCAINE 4% PATCH TOPICAL ONE (16:01)
[2024-12-20] MEDS: KETOROLAC 15 MG/ML 1 ML VIAL IM STA (16:01)
[2024-12-20] MEDS: HYDROmorphone 1 MG/ML 1 ML SYRINGE IM STA (16:02)
[2024-12-20 16:38] LABS: Bacteria,Urine Rare /hpf; Bilirubin,Urine Negative (Negative); Blood,Urine Large (Negative); Color,Urine Light Yellow; Glucose,Urine (UA) Negative (Negative); Ketones,Urine Negative (Negative); Leukocyte Esterase,Urine Negative (Negative); Mucus,Urine Many /hpf; Nitrite,Urine Negative (Negative); PH, Urine 5.5 (5.0-8.0); Protein,Urine Negative (Negative); RBC,Urine 28 /hpf (0-5); Specific Gravity,Urine 1.020 (1.001-1.035); Squamous Epithelial Cell,Urine 3 /hpf (0-4); Urobilinogen,Urine <2.0 mg/dL (<2.0); WBC,Urine 3 /hpf (0-5)
--- NOTE | 2024-12-20 16:58 | US ---
EXAMINATION TYPE: US transvaginal DATE OF EXAM: 12/20/2024 COMPARISON: Same day CT CLINICAL INDICATION: Female, 29 years old with history of Left adnexal tenderness, right ovarian cyst ; Pain, abnormal CT TECHNIQUE: Transvaginal (TV). Transvaginal grayscale sonographic images of the pelvis were acquired. Doppler imaging: Color Doppler Images were obtained. Spectral doppler images were obtained. FINDINGS: Date of LMP: 2 days ago EXAM MEASUREMENTS: Uterus: 10.4 x 4.0 x 4.7 cm Endometrial Stripe: 0.4 cm Right Ovary: 6.5 x 5.1 x 5.5 cm 1. Uterus: Anteverted Heterogeneous, small Nabothian cyst in cervix 2. Endometrium: wnl 3. Right Ovary: Simple cyst= 5.8 x 4.7 x 4.5 cm 4. Left Ovary: Obscured by overlying bowel gas, and large pt body habitus Spectral, color and waveform doppler imaging shows good arterial and venous flow within the right o vary; there is no evidence for ovarian torsion. 5. Bilateral Adnexa: wnl 6. Posterior cul-de-sac: wnl Heterogenous anteverted uterus with small nabothian cyst within the cervix. Endometrium is within nor mal limits. Left ovary is not visualized due to overlying bowel gas and patient's body habitus. No ev idence for right ovarian torsion. Simple right ovarian cyst measuring up to 5.8 cm. No free fluid. IMPRESSION: 1. No ultrasound evidence for acute pelvic process. 2. Simple right ovarian cyst measuring 5.8 cm. No evidence for right ovarian torsion. Follow-up pelvi c ultrasound in 12 months is recommended. 3. Nonvisualization of the left ovary due to overlying bowel gas and patient's body habitus. [facility], , 12/20/2024 4:56 PM
[2024-12-20] MEDS: ACET/COD 300 MG/30 MG STARTER PACK TAB BTL PO STA (17:50)
[2024-12-20 18:21] VITALS: BP 138/88; PULSE 90; TEMP 98
== END 2024-12-20 18:21 | disposition home or self-care (01) ==
LOC: EC 15:16
CPT/HCPCS: 76830; 81001; 81025; 93976; 96372; 99284

== ENCOUNTER 2024-12-24 11:43 | Emergency (ER) | payer OTHER ==
[2024-12-24 11:55] VITALS: TEMP 98
[2024-12-24] MEDS: MORPHINE SULFATE 4 MG/ML SYRINGE IM STA ×2 (12:39→14:07)
--- NOTE | 2024-12-24 12:56 | ED ---
Back Pain [facility] - General Chief Complaint: Back Pain/Injury Stated Complaint: Back pain Time Seen by Provider: 12/24/24 11:56 Source: patient, RN notes reviewed Mode of arrival: ambulatory Limitations: no limitations - History of Present Illness Initial Comments: This is a 29-year-old female with history including cerebral palsy and arthritis presenting for left lower back pain (9/10) x 10 days. Patient states pain has been ongoing since 12/14/2024, receiving CT imaging at the time showing no concerning lumbar spine issues. Patient denies trauma prior to start of pain. States she is scheduled to see a neurologist on 01/19/2025 but has return to ER due to ongoing pain despite use of Flexeril and lidocaine patches. Patient endorses occasional shooting pain/numbness in left lower extremity attributed to the lower back pain. Denies saddle paresthesia, urinary incontinence/retention. MD Complaint: back pain Onset/Timin -: days(s) Place: home Radiation: left leg Severity scale (1-10): 9 Improves With: immobilization Worsens With: movement, walking Associated Symptoms: difficulty walking - Related Data Home Medications Medication Instructions Recorded Confirmed Pnv No.95/Ferrous Fum/Folic AC 1 tab PO DAILY 11/30/19 05/23/20 [ Multivitamin Tablet] Previous Rx's Medication Instructions Recorded Sulfamethox-Tmp 800-160Mg [Bactrim 1 each PO Q12HR 3 Days #6 tab 09/20/21 Ds] Cyclobenzaprine [Flexeril] 10 mg PO TID PRN #30 tab 12/30/23 Doxycycline Hyclate 100 mg PO BID 10 Days #20 capsule 12/30/23 predniSONE 50 mg PO DAILY 5 Days #5 tab 12/30/23 Cyclobenzaprine [Flexeril] 10 mg PO TID PRN #15 tab 06/01/24 Lidocaine 5% Patch [Lidoderm 5% 1 patch TOPICAL DAILY PRN #30 patch 06/01/24 Patch] clindamycin HCL [Cleocin] 300 mg PO Q6HR #40 cap 06/26/24 Cyclobenzaprine [Flexeril] 10 mg PO TID PRN #15 tab 08/06/24 Lidocaine 4% Patch 1 patch TOPICAL DAILY PRN 7 Days 08/06/24 #7 patch predniSONE [Deltasone] 40 mg PO DAILY #10 tab 08/06/24 Cyclobenzaprine [Flexeril] 10 mg PO TID PRN #30 tab 12/14/24 Lidocaine 5% Patch [Lidoderm 5% 1 patch TOPICAL DAILY PRN #30 patch 12/14/24 Patch] Ondansetron Odt [Zofran Odt] 4 mg PO Q8HR PRN #15 tab 12/14/24 predniSONE 50 mg PO DAILY 5 Days #5 tab 12/14/24 Ibuprofen [Motrin] 800 mg PO Q8HR PRN #30 tab 12/20/24 Lidocaine 4% Patch 1 patch TOPICAL Q24H PRN #10 patch 12/20/24 Allergies Allergy/AdvReac Type Severity Reaction Status Date / Time amoxicillin [Amoxicillin] Allergy Dyspnea Verified 12/24/24 11:55 Review of Systems ROS Statement: Those systems with pertinent positive or pertinent negative responses have been documented in the HPI. ROS Other: All systems not noted in ROS Statement are negative. Past Medical History Additional Past Medical History / Comment(s): ADHD, CEREBRAL PALSY, ARTHRITIS. Pre-eclampsia. Obstetric history: She has had one previous vaginal delivery induced at 34 weeks and 5 days for preeclampsia. This is her second and she's had no care up to this point. She does have a appointment with physicians at [facility] within the next week and a half, newly diagnosed hep C History of Any Multi-Drug Resistant Organisms: None Reported Past Surgical History: Section Past Anesthesia/Blood Transfusion Reactions: No Reported Reaction Past Psychological History: ADD/ADHD, Depression Smoking Status: Current every day smoker Past Alcohol Use History: None Reported Past Drug Use History: Marijuana - Past Family History Mother Family Medical History: Hypertension General Exam Limitations: no limitations General appearance: alert, in no apparent distress Head exam: Present: atraumatic, normocephalic, normal inspection Eye exam: Present: normal appearance, PERRL, EOMI. Absent: scleral icterus, conjunctival injection, periorbital swelling ENT exam: Present: normal exam, mucous membranes moist Neck exam: Present: normal inspection. Absent: tenderness, meningismus, lymphadenopathy Respiratory exam: Present: normal lung sounds bilaterally. Absent: respiratory distress, wheezes, rales, rhonchi, stridor Cardiovascular Exam: Present: regular rate, normal rhythm, normal heart sounds. Absent: systolic murmur, diastolic murmur, rubs, gallop, clicks GI/Abdominal exam: Present: soft, normal bowel sounds. Absent: distended, tenderness, guarding, rebound, rigid Extremities exam: Present: normal inspection, full ROM, normal capillary refill, other (LLE distal neurovascular motor function intact.). Absent: tenderness, pedal edema, joint swelling, calf tenderness Back exam: Present: muscle spasm, paraspinal tenderness (Positive left lumbar paraspinal muscle spasm and tenderness.). Absent: vertebral tenderness Neurological exam: Present: alert, oriented X3, CN II-XII intact Psychiatric exam: Present: normal affect, normal mood Skin exam: Present: warm, dry, intact, normal color. Absent: rash Course Vital Signs 12/24/24 11:51 Temperature 98.0 F Pulse Rate 91 Respiratory 18 Rate Blood Pressure 108/97 O2 Sat by Pulse 97 Oximetry Medical Decision Making - Medical Decision Making Was pt. sent in by a medical professional or institution (, PA, FRAMEMAN, urgent care, hospital, or shelter...) When possible be specific @ -[No] Did you speak to anyone other than the patient for history (EMS, parent, family, police, friend...)? What history was obtained from this source @ -[No] Did you review nursing and triage notes (agree or disagree)? Why? @ -[I reviewed and agree with nursing and triage notes] Were old charts reviewed (outside hosp., previous admission, EMS record, old EKG, old radiological studies, urgent care reports/EKG's, shelter records)? Report findings @ -AP CT imaging results from 12/14/2024 revealed no acute fracture or dislocation of the lumbar spine. Differential Diagnosis (chest pain, altered mental status, abdominal pain women, abdominal pain men, vaginal bleeding, weakness, fever, dyspnea, syncope, headache, dizziness, GI bleed, back pain, seizure, CVA, palpatations, mental health, musculoskeletal)? @ -Differential Back Pain: Strain, zoster, cauda equina syndrome, epidural abscess, vertebral osteomyelitis, discitis, fracture, subluxation, disc herniation, DJD, spinal stenosis, dissection, AAA, pancreatitis, peptic ulcer disease, pyelonephritis, kidney stone, this is not meant to be an all-inclusive list. EKG interpreted by me (3pts min.). @ -Not done X-rays interpreted by me (1pt min.). @ -[None done] CT interpreted by me (1pt min.). @ -[None done] U/S interpreted by me (1pt. min.). @ -[None done] What testing was considered but not performed or refused? (CT, X-rays, U/S, labs)? Why? @ -[None] What meds were considered but not given or refused? Why? @ -[None] Did you discuss the management of the patient with other professionals (professionals i.e. , PA, FRAMEMAN, lab, RT, psych nurse, nephrology social worker, tele rn, teacher, youth probation officer, immigration case manager)? Give summary @ -[No] Was smoking cessation discussed for >3mins.? @ -[No] Was critical care preformed (if so, how long)? @ -[No] Were there social determinants of health that impacted care today? How? (Homelessness, low income, unemployed, alcoholism, drug addiction, transportation, low edu. Level, literacy, decrease access to med. care, fpc, rehab)? @ -[No] Was there de-escalation of care discussed even if they declined (Discuss DNR or withdrawal of care, Hospice)? DNR status @ -[No] What co-morbidities impacted this encounter? (DM, HTN, Smoking, COPD, CAD, Cancer, CVA, ARF, Chemo, Hep., AIDS, mental health diagnosis, sleep apnea, morbid obesity)? @ -[None] Was patient admitted / discharged? Hospital course, mention meds given and route, prescriptions, significant lab abnormalities, going to OR and other pertinent info. @ -Patient provided total of 8 mg morphine IM with significant pain relief noted by patient. Advised to follow-up with pain management clinic for ongoing management of chronic low back pain. Cussed patient with Dr. Jensen. Undiagnosed new problem with uncertain prognosis? @ -[No] Drug Therapy requiring intensive monitoring for toxicity (Heparin, Nitro, Insulin, Cardizem)? @ -[No] Were any procedures done? @ -[No] Diagnosis/symptom? @ -Mechanical back pain, sciatica Acute, or Chronic, or Acute on Chronic? @ -Acute on chronic Uncomplicated (without systemic symptoms) or Complicated (systemic symptoms)? @ -Uncomplicated Side effects of treatment? @ -[No] Exacerbation, Progression, or Severe Exacerbation? @ -Exacerbation Poses a threat to life or bodily function? How? (Chest pain, USA, [place], pneumonia, PE, COPD, DKA, ARF, appy, cholecystitis, CVA, Diverticulitis, Homicidal, Suicidal, threat to staff... and all critical care pts) @ -[No] Disposition Clinical Impression: Left lumbar radiculopathy, Mechanical back pain Disposition: HOME SELF-CARE Condition: Fair Instructions (If sedation given, give patient instructions): Acute Low Back Pa in (ED) Is patient prescribed a controlled substance at d/c from ED?: No Referrals: None,Stated [Primary Care Provider] - 1-2 days Kraig Wilkerson MD [STAFF PHYSICIAN] - 1-2 days Francine Kauffman DO [Doctor of Osteopathic Medicine] - 1-2 days Time of Disposition: 14:26
[2024-12-24] MEDS: MORPHINE SULFATE 4 MG/ML SYRINGE IVP STA (13:56)
[2024-12-24 14:55] VITALS: BP 162/80; PULSE 72; RESP 20
== END 2024-12-24 14:55 | disposition home or self-care (01) ==
LOC: EC 11:43
DX: M54.16 Radiculopathy, lumbar region (principal); F17.200 Nicotine dependence, unspecified, uncomplicated; Z88.0 Allergy status to penicillin
CPT/HCPCS: 99283; 96372 ×2; J2270